=== PATIENT | male | born 1960 | race Caucasian/White ===

== ENCOUNTER 2023-06-04 07:55 | Day surgery (SDC) | payer MEDICARE, OTHER, MEDICAID | END 2023-06-04 10:10 | disposition home or self-care (01) | LOC: DS 07:55 | PROC: 0DBQ8ZZ Excision of Anus, Via Natural or Artificial Opening Endoscopic (ICD-10-PCS; principal; 2023-06-04) | PROC: 0DBN8ZZ Excision of Sigmoid Colon, Via Natural or Artificial Opening Endoscopic (ICD-10-PCS; 2023-06-04) | DX: D12.5 Benign neoplasm of sigmoid colon (principal); K62.1 Rectal polyp; K57.30 Diverticulosis of large intestine without perforation or abscess without bleeding; K64.8 Other hemorrhoids; M19.90 Unspecified osteoarthritis, unspecified site; F32.A Depression, unspecified; E78.00 Pure hypercholesterolemia, unspecified; Z80.0 Family history of malignant neoplasm of digestive organs; Z83.710 Family history of adenomatous and serrated polyps; Z88.0 Allergy status to penicillin ==

== ENCOUNTER 2024-03-25 05:50 | Day surgery (SDC) | payer MEDICARE, OTHER, MEDICAID ==
[2024-03-23 08:15] VITALS: BP 138/89
[~2024-03-25] VITALS: Ht 180.3 cm; Wt 90.9 kg
[~2024-03-25 05:50] MED LIST: BACLOFEN10 MG PO; BUTRANS1 EAC1 TD; CELEBREX200 MG PO; CYMBALTA60 MG PO; GLUCOSAMINE HC500 MG PO; LEXAPRO10 MG PO; LIDOCREAM5 GM TP; LIPITOR40 MG PO; MEN'S 50 PLUS1 EACH PO; MIDAZOLAM HCL 5 MG/5 ML VIAL IV PRN; NABUMETONE500 MG PO; OMEPRAZOLE20 M1 PO; ONDANSETRON ODT8 MG PO; PERCOCET 10-321 EACH PO; SUMATRIPTAN SU100 MG PO; fentaNYL citrate 100 MCG/2 ML VIAL IV PRN
[2024-03-25 05:59] VITALS: BP 145/88
[2024-03-25] MEDS ORDERED: LIDOCAINE HCL 1% 5 ML SDV INJ ONE (07:00)
[2024-03-25] MEDS ORDERED: LACTATED RINGER'S 1,000 ML IV SCH (07:00)
[2024-03-25] MEDS ORDERED: IBLOOD GLUCOSE TEST STRIP 1 EA TEST VI PRN (07:00)
[2024-03-25] MEDS ORDERED: LIDOCAINE HCL 2% 5 ML SDV ONE (07:07)
[2024-03-25] MEDS ORDERED: propofoL 200 MG/20 ML VIAL ONE (07:08)
[2024-03-25 08:04] VITALS: BP 127/91
--- NOTE | 2024-03-25 08:31 | OR ---
[facility] [address], [place] [address] Signed DATE OF OPERATION: 03/25/2024 SURGEON: Vielka Sweeney MD PREOPERATIVE DIAGNOSES: 1. Nausea, vomiting, anorexia, and weight loss, now improved. 2. Remote Lea fundoplication. POSTOPERATIVE DIAGNOSES: 1. Gastroesophageal junction at 41 cm. 2. Lower esophageal sphincter (41-44 cm). 3. Mild diffuse gastritis. PROCEDURE: Esophagogastroduodenoscopy with CLOtest and biopsies of the antrum. ESTIMATED BLOOD LOSS: None. INDICATIONS: Tree is a 63-year-old gentleman, who underwent laparoscopic Lea fundoplication over 10 years ago. He also has a lot of difficulty with his back. He has required to do some exercises for his back. He had come into the office, tell me that he was having nausea, vomiting, weight loss, and anorexia; however, today he said that is much better, has not resolved. He said if he lies down after he eats to do his exercises, he said he gets increased acid reflux. We had sent him for a barium swallow on 07/03/2023. Radiologist felt that there was a moderate-sized hiatal hernia. Most of Tree's family lives out of town, so he is just getting here now for his repeat upper endoscopy. His brother came in from [place] to help assist him. Unfortunately, his father has developed rather significant dementia. In the office, I gave San[employer] pamphlet on upper endoscopy. We had reviewed that together. He is very familiar with upper and lower endoscopy at this point in his life. There is risk including, but not limited to gas bloating, crampy abdominal pain, bleeding, perforation requiring surgery, and missed diagnosis. Tree always requires monitored anesthesia care given his overall past medical history as well as his use of marijuana and so forth. It has worked out very well for him in the past and it worked out well for him again today. He understands an adult person has to take him home afterwards. Namely, his brother, Mariusz, will be taking him home. He had expressed understanding and wished to proceed. DESCRIPTION OF PROCEDURE: Electronically Signed By: VIELKA SWEENEY MD 03/25/24 0831 PATIENT NAME: TREE MORAN OPERATIVE REPORT DATE OF : 56 REPORT #: [id number] PHYSICIAN: VIELKA SWEENEY MD PCP: CESAR VILLA MD REPORT IS CONFIDENTIAL AND NOT TO BE RELEASED WITHOUT AUTHORIZATION [facility] [address], [place] [address] Signed Tree was taken into our endoscopy suite and placed in the supine semi-recumbent position. He was given monitored anesthesia care per our nurse senior systems developer. The posterior oropharynx was anesthetized with Hurricaine spray. A bite block was utilized for the case. Adult gastroscope was introduced and advanced quite readily out into the third portion of the duodenum. The duodenum and pyloric channel were unremarkable. As always, he had a little diffuse redness in his stomach. We went ahead and took a biopsy of the antrum for CLOtest as well as pathologic review. Upon retroflexion of scope, he appears to have a small hiatal hernia. I really could not appreciate any postsurgical changes. We watched this for quite some time through multiple respiratory cycles. We brought the scope back up through the area of the GE junction, which was compliant without stricture. There was no gastric or esophageal varices. Once again, we really cannot appreciate any postsurgical changes. We see the GE junction at 41 cm, although little difficult to measure since Tree is edentulous. It appears that the lower esophageal sphincter area was about 44 cm back to about 41 cm. There was very little disruption to the Z-line. There was no Carter mucosa. There was no distal esophagitis. The middle and upper esophagus were unremarkable. After this, the gas was suctioned out, the gastroscope removed. Tree tolerated the procedure quite well. RECOMMENDATIONS: I will see Tree back in my office in the weeks ahead to review his biopsies. It is possible that he completely disrupted his Lea fundoplication, although that is a bit unusual. Based on his symptoms, he may or may not need to visit with his foregut surgeon. Vielka Sweeney MD ALB/MODL /[id number] cc: MD Estehr Ni MD Kevin R Andrews, MD Electronically Signed By: VIELKA SWEENEY MD 03/25/24 0831 PATIENT NAME: TREE MORAN OPERATIVE REPORT DATE OF : 56 REPORT #: [id number] PHYSICIAN: VIELKA SWEENEY MD PCP: CESAR VILLA MD REPORT IS CONFIDENTIAL AND NOT TO BE RELEASED WITHOUT AUTHORIZATION [address] [address] Signed Copies: VIELKA SWEENEY MD, CHRISTY MD ANDREWS, KEVIN R MD ~ Electronically Signed By: VIELKA SWEENEY MD 03/25/24 0831 PATIENT NAME: LUISATREEN OPERATIVE REPORT DATE OF : 56 REPORT #: [id number] PHYSICIAN: VIELKA SWEENEY MD PCP: CESAR VILLA MD REPORT IS CONFIDENTIAL AND NOT TO BE RELEASED WITHOUT AUTHORIZATION
== END 2024-03-25 08:15 | disposition home or self-care (01) ==
LOC: DS 05:50
PROVIDERS: ATTEND Colon & Rectal Surgery
PROC: 0DB68ZX Excision of Stomach, Via Natural or Artificial Opening Endoscopic, Diagnostic (ICD-10-PCS; principal; 2024-03-25 07:30)
DX: K29.50 Unspecified chronic gastritis without bleeding (principal); K21.9 Gastro-esophageal reflux disease without esophagitis; M19.90 Unspecified osteoarthritis, unspecified site; G89.29 Other chronic pain; K44.9 Diaphragmatic hernia without obstruction or gangrene; Z88.0 Allergy status to penicillin; Z88.8 Allergy status to other drugs, medicaments and biological substances; Z79.899 Other long term (current) drug therapy
CPT/HCPCS: 00731; 36415; 87077; 88305; J2001; J2704; J7121

== ENCOUNTER 2025-01-24 08:00 | Day surgery (SDC) | payer MEDICARE, OTHER ==
[2025-01-20 13:53] VITALS: BP 126/95
[~2025-01-24] VITALS: Ht 180.3 cm; Wt 95.0 kg
[~2025-01-24 08:00] MED LIST changes: +CEFAZOLIN SODIUM 2 GM/20 ML SYR IV SCH; +IBLOOD GLUCOSE TEST STRIP 1 EA TEST VI PRN; +LACTATED RINGER'S 1,000 ML IV SCH; +LIDOCAINE HCL 1% 5 ML SDV INJ ONE; +LIDOCAINE35.44 GM TOP; -MIDAZOLAM HCL 5 MG/5 ML VIAL IV PRN; +PHENAZOPYRIDIN200 MG PO; +TAMSULOSIN HCL0.4 MG PO; -fentaNYL citrate 100 MCG/2 ML VIAL IV PRN; +mitoMYcin 40 MG/20 ML VIAL BLADIN SCH
[2025-01-24 08:17] VITALS: BP 135/87
[2025-01-24] MEDS ORDERED: ondansetron HCL 4 MG/2 ML VIAL ONE (09:58)
[2025-01-24] MEDS ORDERED: propofoL 200 MG/20 ML VIAL ONE (09:58)
[2025-01-24] MEDS ORDERED: DEXAMETHASONE SOD PHOS 4 MG/ML VIAL ONE (09:58)
[2025-01-24] MEDS ORDERED: ROCURONIUM BROMIDE 50 MG/5 ML SYR ONE ×3 (09:58→12:39)
[2025-01-24] MEDS ORDERED: dexmedeTOMIDine HCl 200 MCG/2 ML VIAL ONE (09:58)
[2025-01-24] MEDS ORDERED: LIDOCAINE HCL 2% 5 ML SDV ONE (09:58)
[2025-01-24] MEDS ORDERED: LIDOCAINE HCL 2% 20 MG/ML VIAL INJ ONE (09:58)
[2025-01-24] MEDS ORDERED: fentaNYL citrate 100 MCG/2 ML VIAL ONE ×2 (09:58→10:53)
[2025-01-24] MEDS ORDERED: SUGAMMADEX SODIUM 200 MG/2 ML ML ONE (09:59)
[2025-01-24] MEDS ORDERED: KETAMINE in NS 50 MG/5 ML SYR ONE (09:59)
[2025-01-24] MEDS ORDERED: HYDROmorphone HCL 1 MG/ML SYR IV PRN ×2 (10:15→11:15)
[2025-01-24] MEDS ORDERED: MORPHINE SULFATE 15 MG TABCR PO PRN (10:15)
[2025-01-24] MEDS ORDERED: ondansetron HCL 4 MG/2 ML VIAL IV PRN ×2 (10:15→11:15)
[2025-01-24] MEDS ORDERED: OXYCODONE/APAP 5/325 TAB PO PRN (10:15)
[2025-01-24] MEDS ORDERED: HYOSCYAMINE SULFATE 0.375 MG TAB.ER.12H PO PRN (10:15)
[2025-01-24] MEDS ORDERED: NALOXONE HCL 0.4 MG SYR IV PRN (11:15)
[2025-01-24] MEDS ORDERED: droPERidol 5 MG/2 ML VIAL IV PRN (11:15)
[2025-01-24] MEDS ORDERED: fentaNYL citrate 50 MCG/ML SDV IV PRN (11:15)
[2025-01-24] MEDS ORDERED: IBLOOD GLUCOSE TEST STRIP 1 EA TEST VI PRN (11:15)
[2025-01-24] MEDS ORDERED: PROCHLORPERAZINE EDISYLATE 10 MG/2 ML VIAL IV PRN (11:15)
[2025-01-24] MEDS ORDERED: LACTATED RINGER'S 1,000 ML IV ONE (11:32)
[2025-01-24] MEDS ORDERED: hydrALAZINE HCL 20 MG/ML VIAL ONE (11:41)
[2025-01-24] MEDS ORDERED: FLUORESCEIN SODIUM 500 MG/5 ML ML ONE (11:47)
[2025-01-24] MEDS ORDERED: HYDROmorphone HCL 2 MG/ML VIAL ONE (12:30)
[2025-01-24] MEDS ORDERED: TRANEXAMIC ACID 1,000 MG/10 ML AMP ONE (12:41)
--- NOTE | 2025-01-24 13:24 | NUR ---
01/24/25 1324 Shabnam Angulo 1259 PT ARRIVED IN PACU NON RESPONSIVE TO NOXIOUS STIMULI WITH OPA IN PLACE LAYING SUPINE. CHIN LIFT HELD BY RN. 1305 PT REACTIVE. OPA REMOVED. REPOSITIONED PT TO R SIDE. 1320 REPOSITIONED PT TO L SIDE. NO C/O'S.
[2025-01-24 13:52] VITALS: BP 148/85
[2025-01-24] MEDS ORDERED: SEVOFLURANE 250 ML BTL INH ONE (14:10)
--- NOTE | 2025-01-24 14:22 | NUR ---
PT ARRIVED BACK TO ON RA, IN PRONE POSITION WITH MCDONOUGH CATHETER NOTED TO BE DRAINING TO GRAVITY, SANGUINEOUS URINE WITH VISIBLE CLOTS. VS TAKEN. REPORT RECEIVED FROM PEDIATRIC NP THAT PT WAS UNABLE TO TOLERATE PRONE POSITION WITH MITOMYCIN IN PLACE FOR MORE THAN 5 MINS AND THAT BLADDER WAS DRAINED WITH DR. DEMETRIUS HURTADO. PT REPORTS PAIN IN BLADDER AND RATES AT 6/10. PT DENIES NAUSEA WHEN ASKED. IV SITE ASSESSED AND NOTED TO BE SL'D UPON RETURN TO . SMALL AMT OF SANGUINOUS DRAINAGE NOTED FROM URETHRA AROUND CATHETER. PT ASSISTED IN TURNING ONTO BACK TO COMPLETE DRAINING OF BLADDER AND CHANGE CATHETER DRAINAGE BAG TO DISPOSE OF MITOMYCIN PER POLICY. 1400-PTS MCDONOUGH BAG REPLACED. APPROX 200ML OF MITOMYCIN MIXED WITH SANGUINEOUS URINE NOTED IN MCDONOUGH DRAINAGE BAG. DISPOSED OF PER FACILITY POLICY. STAT LOCK PLACED ON R INNER THIGH AREA TO SECURE CATH BAG AND PREVENT PULLING. PT NOTED WITH LARGE AMT OF CLOTS IN DRAINAGE TUBING. MCDONOUGH DRAINAGE TO GRAVITY AT THIS TIME. 1409-PT GIVEN PO PAIN MEDS PER EMAR WELL ICE WATER AND PUDDING. PT EATING AND DRINKING W/O ISSUES REPORTED OR NOTED. 1415-PT REPORTING BLADDER SPASMS. PO HYCOSAMINE GIVEN PER ORDERS FOR RELIEF. PT DROWSY AND DOZING ON AND OFF. BED IN LOW POSITION. CALL LIGHT WITHIN PT REACH. BILAT RAILS IN PLACE FOR SAFETY. ALL QUESTIONS ANSWERED.
[2025-01-24 14:52] VITALS: BP 141/78
--- NOTE | 2025-01-24 14:52 | NUR ---
INTO PTS ROOM FOR ROUTINE REASSESSMENT. VS TAKEN. IV SITE ASSESSED. CATHETER NOTED TO BE DRAINAGE SANGUINEOUS URINE TO GRAVITY. SMALL CLOTS VISUALIZED IN DRAINAGE BAG. PT DENIES NAUSEA WHEN ASKED. PT REPORTS IMPROVEMENT IN BOTH PAIN AND BLADDER SPASMS. PT RATES PAIN AT 3/10 AND REPORTS THIS TO BE A TOLERABLE LEVEL OF PAIN FOR HIM. PT EATING AND DRINKING W/O ISSUES. PT REMAINS DROWSY AND NOTED TO EASILY FALL ASLEEP. PT WITH AUDIBLY LOUD SNORRING. PT DOES EASILY AROUSE WITH TACTILE STIMULI. BED IN LOW POSITION. WHEELS LOCKED. BILAT RAILS IN PLACE. CALL LIGHT WITHIN PT REACH. ALL QUESTIONS ANSWERED. ICE WATER REFILLED.
[2025-01-24 15:55] VITALS: BP 139/95
[2025-01-24] MEDS ORDERED: OXYBUTYNIN CHLOR5 MG PO (16:08)
[2025-01-24] MEDS ORDERED: OXYCODONE HCL5 MG PO (16:09)
[2025-01-24] MEDS ORDERED: LEVOFLOXACIN500 MG PO (16:10)
--- NOTE | 2025-01-24 16:30 | NUR ---
1552-INTO PTS ROOM FOR ROUTINE REASSESSMENT. VS TAKEN. IV SITE ASSESSED. PT REPORTS FURTHER IMPROVMENT IN PAIN AND BLADDER SPASMS. PT REPORTS PAIN NOW 1/10 AND DESRIBES SLIGHTLY IRRITATING. PT REPORTS THIS LEVEL OF PAIN TO BE TOLERABLE AND DECLINES ANY FURTHER PAIN MANAGEMENTS NEEDS AT THIS TIME. PT REPORTS SPASMS HAVE STOPPED CURRENTLY. ICE WATER REFILLED. PT NOW MORE AWAKE AND AAOX3. PT ANSWERS QUESTIONS APPROPRAITELY. CATHETER CONTINUES TO DRAIN TO GRAVITY AND IS NOW YELLOW IN COLOR WITH RARE SMALL CLOTS SEEN. PT EDUCATED ON CATH CARE AND MAINTENENCE. PT SHOWN HOW TO DRAIN CATHETER BAG. APPROX 650 ML OF URINE EMPTIED. PT VERBALIZED UNDERSTANDIING. ASSISTED PT IN DRESSING FOR DC. 1615-PT PROVIDED WITH WRITTEN AND VERBAL DISCHARGE INSTRUCTION. PT ALSO GIVEN HANDOUT OF HOME CARE INSTRUCTIONS FOR HANDLING OF URINE AFTER PROCEDURE WITH MITOMYCIN. ALL QUESTIONS ANSWERED AND PT VERBALIZED UNDERSTANDING. RX'S GIVEN TO PT. 1630-IV REMOVED. TIP APPEARS INTACT. PRESSURE DRSG APPLIED WITH GAUZE AND COBAN. ICE WATER REFIILLED. PTS BROTHER CALLED FOR RIDE HOME.
--- NOTE | 2025-01-24 16:40 | NUR ---
PT DISCHARGED FROM DS VIA WC TO PASSENGER SIDE OF [employer] VEHICLE. ALL PERSONAL BELONGINGS TAKEN WITH PT.
--- NOTE | 2025-01-26 16:35 | PATH ---
[facility] [address] [facility] [place], [place] [address] Signed SPECIMEN(S): A BLADDER TUMOR SPECIMEN SOURCE: A. BLADDER TUMOR CLINICAL HISTORY: Bladder mass, gross hematuria, acute cystitis with hematuria FINAL PATHOLOGIC DIAGNOSIS: Bladder tumor, TUR: - Invasive high-grade papillary urothelial carcinoma. - Tumor configuration: Papillary. - Tumor grade: High-grade. - Stromal invasion: Present. - Detrusor muscle: Present with extensive tumor invasion. COMMENT: Diagnostic notification to the office of Dr. Aguirre is initiated by Dr. Shore and will be reported separately. As part of [facility]' Quality Improvement Program, this case was reviewed by another member of our pathology staff. JVR:SHARDA:[facility] MICROSCOPIC EXAMINATION: Histologic sections of all submitted blocks are examined by light microscopy. These findings, together with the gross examination, support the pathologic diagnosis. GROSS DESCRIPTION: The specimen, labeled and designated "Forth, bladder tumor," is received in formalin and consists of multiple fragments of red-brown soft and rubbery tissue (12.0 x 5.6 x 0.6 cm in aggregate). The specimen is submitted entirely in cassette (A1-A11). VB (under the direct supervision of a pathologist) The Gross Description was prepared using a voice recognition system. The report was reviewed for accuracy; however, sound-alike word errors, addition and/or deletions may occur. If there is any question about this report, please contact Client Services. PERFORMING LABORATORY: Technical component was performed by [facility], Sylvia Tate, PATIENT NAME: XOCHITL MORAN PATHOLOGY DATE OF : 56 REPORT #: [id number] PHYSICIAN: HO JUNG PCP: MIGUE OROSCO DO REPORT IS CONFIDENTIAL AND NOT TO BE RELEASED WITHOUT AUTHORIZATION [facility] [address] [facility] [place], [place] [address] [place] [address] (CLIA# [id number]). Professional interpretation was performed by [facility], [address] [place] [id number] (CLIA#: [id number]). Diagnostician: Roshan Shore MD Pathologist Electronically Signed 01/26/2025 Copies: ~ PATIENT NAME: XOCHITL MORAN PATHOLOGY DATE OF : 56 REPORT #: [id number] PHYSICIAN: HO JUNG PCP: MIGUE OROSCO DO REPORT IS CONFIDENTIAL AND NOT TO BE RELEASED WITHOUT AUTHORIZATION
== END 2025-01-24 16:40 | disposition home or self-care (01) ==
LOC: DS 08:00 → OPS 08:00 → DS 09:55 → OPS 09:55
PROVIDERS: ATTEND Urology
PROC: 3E0K805 Introduction of Other Antineoplastic into Genitourinary Tract, Via Natural or Artificial Opening Endoscopic (ICD-10-PCS; 2025-01-24)
PROC: 0TBB8ZZ Excision of Bladder, Via Natural or Artificial Opening Endoscopic (ICD-10-PCS; principal; 2025-01-24 09:55)
DX: C67.2 Malignant neoplasm of lateral wall of bladder (principal); C67.4 Malignant neoplasm of posterior wall of bladder; N32.3 Diverticulum of bladder; N30.01 Acute cystitis with hematuria; K21.9 Gastro-esophageal reflux disease without esophagitis; E78.00 Pure hypercholesterolemia, unspecified; Z87.891 Personal history of nicotine dependence; Z79.1 Long term (current) use of non-steroidal anti-inflammatories (NSAID); Z79.899 Other long term (current) drug therapy; Z90.49 Acquired absence of other specified parts of digestive tract; Z88.0 Allergy status to penicillin; Z88.8 Allergy status to other drugs, medicaments and biological substances; N32.89 Other specified disorders of bladder
CPT/HCPCS: 00910; 88307; C1713; J0360; J0690; J1100; J1171; J2003; J2405; J2704; J3010; J3490; J7121; J9280

== ENCOUNTER 2025-03-16 15:34 | Emergency (ER) | payer MEDICARE, OTHER ==
[~2025-03-16] VITALS: Ht 180.3 cm; Wt 71.0 kg
[~2025-03-16 15:34] MED LIST changes: -CEFAZOLIN SODIUM 2 GM/20 ML SYR IV SCH; -IBLOOD GLUCOSE TEST STRIP 1 EA TEST VI PRN; -LACTATED RINGER'S 1,000 ML IV SCH; +LEVOFLOXACIN500 MG PO; -LIDOCAINE HCL 1% 5 ML SDV INJ ONE; -OMEPRAZOLE20 M1 PO; +OMEPRAZOLE40 MG PO; +OXYBUTYNIN CHLOR5 MG PO; +OXYCODONE HCL5 MG PO; -mitoMYcin 40 MG/20 ML VIAL BLADIN SCH
[2025-03-16] MEDS ORDERED: OXYBUTYNIN CHLOR5 M1 PO (15:50)
[2025-03-16 16:01] LABS: BLOOD/HGB, URINE LARGE (Negative); KETONE, URINE TRACE (Negative); LEUK ESTERASE, URINE MODERATE (negative); NITRITE, URINE POSITIVE (negative)
[2025-03-16 16:09] LABS: BACTERIA, URINE 2+ /hpf (negative); CASTS, URINE NONE SEEN \\lpf; CRYSTALS, URINE NONE SEEN (0-1+); EPITHELIAL CELLS, URINE SQUAMOUS 1+ /lpf (0-1+); REFLEX CULTURE, URINE Yes (No)
[2025-03-16] MEDS ORDERED: SODIUM CHLORIDE 0.9% 500 ML IV PRN (16:45)
[2025-03-16] MEDS ORDERED: KETOROLAC TROMETHAMINE 15 MG/ML VIAL IV ONE (16:45)
[2025-03-16 17:03] LABS: BASOPHILS 0.5 % (0.2-1.2); EOSINOPHILS 0.5 % (0.8-7.0); LYMPHOCYTES 19.7 % (21.8-53.1); MCH 22.4 PG (25.7-32.2); MCHC 31.0 g/dL (32.3-36.5); MCV 72.1 fL (79.0-92.2); MONOCYTES 13.5 % (5.3-12.2); NEUTROPHILS 65.0 % (34.0-67.9); RBC 5.59 M/uL (4.63-6.08)
[2025-03-16 17:18] LABS: ALT (SGPT) 26.0 U/L (14-59); AST (SGOT) 16.0 U/L (15-37); GLOMERULAR FILTRATION RATE,EST 46.0 mL/min (>60); PROTEIN, TOTAL 8.0 g/dL (6.4-8.2); UREA NITROGEN 19.0 mg/dL (7-18)
[2025-03-16] MEDS ORDERED: SODIUM CHLORIDE 0.9% 1,000 ML IV PRN (17:45)
[2025-03-16] MEDS ORDERED: HYDROmorphone HCL 1 MG/ML SYR IV PRN (17:45)
[2025-03-16] MEDS ORDERED: CEFDINIR300 MG PO (19:03)
[2025-03-16 19:13] VITALS: BP 151/98
== END 2025-03-16 19:15 | disposition home or self-care (01) ==
LOC: ED 15:34
PROVIDERS: Emergency Medicine
DX: N39.0 Urinary tract infection, site not specified (principal); C78.00 Secondary malignant neoplasm of unspecified lung; C67.9 Malignant neoplasm of bladder, unspecified; E78.00 Pure hypercholesterolemia, unspecified; M19.90 Unspecified osteoarthritis, unspecified site; K21.9 Gastro-esophageal reflux disease without esophagitis; Z79.899 Other long term (current) drug therapy; Z88.0 Allergy status to penicillin; Z88.8 Allergy status to other drugs, medicaments and biological substances; Z87.891 Personal history of nicotine dependence
CPT/HCPCS: 36415; 51798; 74176; 80053; 81001; 83605; 85025; 87088; 87103; 96365; 96375; 99284-25; J0696; J1171; J1885; J7030; J7040

== ENCOUNTER 2025-04-09 20:05 | Emergency (ER) | payer MEDICARE, OTHER ==
[~2025-04-09] VITALS: Ht 365.8 cm; Wt 76.5 kg
[~2025-04-09 20:05] MED LIST changes: +CEFDINIR300 MG PO; -CYMBALTA60 MG PO; +DULOXETINE HCL60 MG PO; +OXYBUTYNIN CHLOR5 M1 PO
--- OUTSIDE RECORDS SUMMARY | 2025-04-09 20:12 | XMS ---
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 Gary has no Care Guidelines for this patient. C[facility] (12 MO.) [facility] NOTE: Visits indicate total known visits. ED/C VISIT TRACKING (12 MO.) 04/09/2025 20:[address] [facility] [place] TYPE: Emergency COMPLAINT: - WEAKNESS 03/16/2025 15:[address] [facility] [place] TYPE: Emergency COMPLAINT: - BLADDER ISSUE DIAGNOSES: - Allergy status to other drugs, medicaments and biological substances - Allergy status to penicillin - Gastro-esophageal reflux disease without esophagitis - Malignant neoplasm of bladder, unspecified - Other snf (current) drug therapy - Personal history of nicotine dependence - Pure hypercholesterolemia, unspecified - Retention of urine, unspecified - Secondary malignant neoplasm of unspecified lung - Unspecified osteoarthritis, unspecified site - Urinary tract infection, site not specified INPATIENT VISIT TRACKING (12 MO.) No inpatient visits to display in this time frame [email or web address]
[2025-04-09] MEDS ORDERED: PROCHLORPERAZINE5 MG PO (20:29)
[2025-04-09] MEDS ORDERED: LACTATED RINGER'S 1,000 ML IV ONE ×2 (20:45→22:15)
[2025-04-09] MEDS ORDERED: FAMOTIDINE 20 MG/ 2 ML VIAL IV ONE (20:45)
[2025-04-09 21:10] LABS: ALT (SGPT) 24.0 U/L (14-59); AST (SGOT) 19.0 U/L (15-37); GLOMERULAR FILTRATION RATE,EST 65.0 mL/min (>60); PROTEIN, TOTAL 7.3 g/dL (6.4-8.2); UREA NITROGEN 20.0 mg/dL (7-18)
[2025-04-09] MEDS ORDERED: SUCRALFATE 1 GM TAB PO ONE (21:15)
[2025-04-09] MEDS ORDERED: LIDOCAINE & ANTACID 35 ML BTL PO ONE (21:15)
[2025-04-09 21:36] LABS: BASOPHILS 0 % (0.2-1.2); EOSINOPHILS 0.2 % (0.8-7.0); LYMPHOCYTES 10.8 % (21.8-53.1); MCH 23.2 PG (25.7-32.2); MCHC 32.1 g/dL (32.3-36.5); MCV 72.3 fL (79.0-92.2); MONOCYTES 5.7 % (5.3-12.2); NEUTROPHILS 82.6 % (34.0-67.9); RBC 4.44 M/uL (4.63-6.08)
[2025-04-09 22:30] LABS: BLOOD/HGB, URINE MODERATE (Negative); KETONE, URINE >=80 (Negative); LEUK ESTERASE, URINE NEGATIVE (negative); NITRITE, URINE NEGATIVE (negative)
[2025-04-09 22:52] LABS: BACTERIA, URINE 1+ /hpf (negative); CASTS, URINE NONE SEEN \\lpf; CRYSTALS, URINE NONE SEEN (0-1+); EPITHELIAL CELLS, URINE SQUAMOUS 1+ /lpf (0-1+); REFLEX CULTURE, URINE No (No)
[2025-04-09] MEDS ORDERED: ACETAMINOPHEN 325 MG TAB PO ONE (23:45)
[2025-04-09] MEDS ORDERED: ONDANSETRON ODT4 MG PO (23:59)
[2025-04-09] MEDS ORDERED: CARAFATE1 GM PO (23:59)
[2025-04-10 00:49] VITALS: BP 160/96
[2025-04-10] MEDS ORDERED: ONDANSETRON 4 MG HOME.PACK SL ONE ×2 (00:57→23:45)
[2025-04-12] MEDS ORDERED: CARAFATE1 GM PO (17:24)
[2025-04-14] MEDS ORDERED: FAMOTIDINE20 MG PO (16:54)
[2025-04-14] MEDS ORDERED: CELECOXIB200 MG PO (16:55)
[2025-04-14] MEDS ORDERED: ONDANSETRON ODT8 MG PO (16:58)
[2025-04-14] MEDS ORDERED: DEXAMETHASONE4 MG PO (17:00)
[2025-04-14] MEDS ORDERED: TRAMADOL HCL50 MG PO (17:01)
[2025-04-14] MEDS ORDERED: OXYBUTYNIN CHLOR5 M1 PO (17:04)
== END 2025-04-10 00:51 | disposition home or self-care (01) ==
LOC: ED 20:05
PROVIDERS: Internal Medicine
DX: R11.2 Nausea with vomiting, unspecified (principal); T45.1X5A Adverse effect of antineoplastic and immunosuppressive drugs, initial encounter; K21.9 Gastro-esophageal reflux disease without esophagitis; Z87.891 Personal history of nicotine dependence; Z88.0 Allergy status to penicillin; Z88.8 Allergy status to other drugs, medicaments and biological substances; Z88.6 Allergy status to analgesic agent; Z79.899 Other long term (current) drug therapy
CPT/HCPCS: 36415; 80053; 81001; 83690; 83735; 84484; 85025; 96361; 96374; 96375; 99284-25; A9270; J2405; J7121

== ENCOUNTER 2025-04-11 13:01 | Emergency (ER) | payer MEDICARE, OTHER ==
[~2025-04-11] VITALS: Ht 365.8 cm; Wt 73.5 kg
[~2025-04-11 13:01] MED LIST changes: +CARAFATE1 GM PO; +ONDANSETRON ODT4 MG PO; +PROCHLORPERAZINE5 MG PO
--- OUTSIDE RECORDS SUMMARY | 2025-04-11 13:09 | XMS ---
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 Gary has no Care Guidelines for this patient. Candy VISIT COUNT (12 MO.) 3 [facility]. TOTAL 3 NOTE: Visits indicate total known visits. ED/C VISIT TRACKING (12 MO.) 04/11/2025 13:[address] [facility] [place] TYPE: Emergency COMPLAINT: - WEAKNESS 04/09/2025 20:05 [facility] [place] TYPE: Emergency COMPLAINT: - WEAKNESS 03/16/2025 15:34 [facility] [place] TYPE: Emergency COMPLAINT: - BLADDER ISSUE DIAGNOSES: - Allergy status to other drugs, medicaments and biological substances - Allergy status to penicillin - Gastro-esophageal reflux disease without esophagitis - Malignant neoplasm of bladder, unspecified - Other mcfp (current) drug therapy - Personal history of nicotine dependence - Pure hypercholesterolemia, unspecified - Retention of urine, unspecified - Secondary malignant neoplasm of unspecified lung - Unspecified osteoarthritis, unspecified site - Urinary tract infection, site not specified INPATIENT VISIT TRACKING (12 MO.) No inpatient visits to display in this time frame [email or web address]
[2025-04-11] MEDS ORDERED: HYDROmorphone HCL 1 MG/ML SYR IV PRN (14:00)
[2025-04-11] MEDS ORDERED: SODIUM CHLORIDE 0.9% 1,000 ML IV ONE (14:00)
[2025-04-11 14:22] LABS: BASOPHILS 0.5 % (0.2-1.2); EOSINOPHILS 0.7 % (0.8-7.0); LYMPHOCYTES 17.6 % (21.8-53.1); MCH 23.3 PG (25.7-32.2); MCHC 32.1 g/dL (32.3-36.5); MCV 72.6 fL (79.0-92.2); MONOCYTES 2.4 % (5.3-12.2); NEUTROPHILS 78.6 % (34.0-67.9); RBC 4.63 M/uL (4.63-6.08)
[2025-04-11 14:38] LABS: ALT (SGPT) 27.0 U/L (14-59); AST (SGOT) 16.0 U/L (15-37); GLOMERULAR FILTRATION RATE,EST 73.0 mL/min (>60); PROTEIN, TOTAL 6.9 g/dL (6.4-8.2); UREA NITROGEN 18.0 mg/dL (7-18)
[2025-04-11 15:55] LABS: BLOOD/HGB, URINE MODERATE (Negative); KETONE, URINE SMALL (Negative); LEUK ESTERASE, URINE NEGATIVE (negative); NITRITE, URINE NEGATIVE (negative)
[2025-04-11 16:10] LABS: BACTERIA, URINE NONE SEEN /hpf (negative); CASTS, URINE NONE SEEN \\lpf; CRYSTALS, URINE NONE SEEN (0-1+); EPITHELIAL CELLS, URINE SQUAMOUS 2+ /lpf (0-1+); REFLEX CULTURE, URINE No (No)
[2025-04-11 16:55] VITALS: BP 163/106
[2025-04-12] MEDS ORDERED: CARAFATE1 GM PO (17:24)
[2025-04-14] MEDS ORDERED: FAMOTIDINE20 MG PO (16:54)
[2025-04-14] MEDS ORDERED: CELECOXIB200 MG PO (16:55)
[2025-04-14] MEDS ORDERED: ONDANSETRON ODT8 MG PO (16:58)
[2025-04-14] MEDS ORDERED: DEXAMETHASONE4 MG PO (17:00)
[2025-04-14] MEDS ORDERED: TRAMADOL HCL50 MG PO (17:01)
[2025-04-14] MEDS ORDERED: OXYBUTYNIN CHLOR5 M1 PO (17:04)
== END 2025-04-11 17:03 | disposition home or self-care (01) ==
LOC: ED 13:01
PROVIDERS: Emergency Medicine
DX: E86.0 Dehydration (principal); N13.30 Unspecified hydronephrosis; K44.9 Diaphragmatic hernia without obstruction or gangrene; C67.9 Malignant neoplasm of bladder, unspecified; Z87.891 Personal history of nicotine dependence; Z88.0 Allergy status to penicillin; Z88.8 Allergy status to other drugs, medicaments and biological substances; Z79.899 Other long term (current) drug therapy
CPT/HCPCS: 36415; 74177; 80053; 81001; 83690; 85025; 96361; 96374; 96375; 99284-25; J1171; J2405; J7030; Q9967

== ENCOUNTER 2025-04-18 07:38 | Day surgery (SDC) | payer MEDICARE, OTHER ==
[~2025-04-18] VITALS: Ht 180.3 cm; Wt 73.0 kg
[~2025-04-18 07:38] MED LIST changes: +CEFAZOLIN SODIUM 2 GM in SODIUM CHLORIDE 0.9% 100 ML IV SCH; +CELECOXIB200 MG PO; +DEXAMETHASONE4 MG PO; +FAMOTIDINE20 MG PO; +IBLOOD GLUCOSE TEST STRIP 1 EA TEST VI PRN; +LACTATED RINGER'S 1,000 ML IV SCH; +LIDOCAINE HCL 1% 5 ML SDV INJ ONE; +TRAMADOL HCL50 MG PO
[2025-04-18 07:54] VITALS: BP 158/105
--- NOTE | 2025-04-18 08:10 | NUR ---
HAS PICC JAYASHREE ON ADMISSION. SAGE WITH PT AT BS.
--- NOTE | 2025-04-18 09:07 | NUR ---
IN TO TALK WITH PT.
[2025-04-18] MEDS ORDERED: fentaNYL citrate 100 MCG/2 ML VIAL ONE (09:33)
[2025-04-18] MEDS ORDERED: DEXAMETHASONE SOD PHOS 4 MG/ML VIAL ONE (09:33)
[2025-04-18] MEDS ORDERED: ACETAMINOPHEN 1,000 MG/100 ML VIAL ONE (09:33)
[2025-04-18] MEDS ORDERED: LIDOCAINE HCL 2% 5 ML SDV ONE (09:33)
[2025-04-18] MEDS ORDERED: KETOROLAC TROMETHAMINE 30 MG/ML VIAL ONE (09:34)
[2025-04-18] MEDS ORDERED: HYOSCYAMINE SULFATE 0.375 MG TAB.ER.12H PO PRN (09:45)
[2025-04-18] MEDS ORDERED: MORPHINE SULFATE 15 MG TABCR PO PRN (09:45)
[2025-04-18] MEDS ORDERED: OXYCODONE/APAP 5/325 TAB PO PRN (09:45)
[2025-04-18] MEDS ORDERED: HYDROmorphone HCL 1 MG/ML SYR IV PRN ×2 (09:45→10:00)
[2025-04-18] MEDS ORDERED: PHENAZOPYRIDINE HCL 100 MG TAB PO ONE (09:45)
[2025-04-18] MEDS ORDERED: IBLOOD GLUCOSE TEST STRIP 1 EA TEST VI PRN (10:00)
[2025-04-18] MEDS ORDERED: fentaNYL citrate 50 MCG/ML SDV IV PRN (10:00)
[2025-04-18] MEDS ORDERED: NALOXONE HCL 0.4 MG SYR IV PRN (10:00)
[2025-04-18] MEDS ORDERED: PROCHLORPERAZINE EDISYLATE 10 MG/2 ML VIAL IV PRN (10:00)
[2025-04-18] MEDS ORDERED: FLUORESCEIN SODIUM 500 MG/5 ML ML ONE (10:06)
--- NOTE | 2025-04-18 10:51 | NUR ---
04/18/25 1051 Elayne Salas PATIENT ARRIVES IN PACU, UNRESPONSIVE AND JAW THRUST IS NECESSARY FOR ADEQUATE EXCHANGE.
[2025-04-18 11:14] VITALS: BP 162/100
--- NOTE | 2025-04-18 11:17 | NUR ---
SAGE HAS NOT RETURNED YET. CALL LIGHT GIVEN. WATER AND JELLO GIVEN.
[2025-04-18 12:08] VITALS: BP 153/100
--- NOTE | 2025-04-18 12:11 | NUR ---
STATES WATS TO GO HOME. HAS TAKEN WATER AND JELLO. DECLINES PAIN MEDICINE.
[2025-04-18] MEDS ORDERED: SEVOFLURANE 250 ML BTL INH ONE (13:06)
--- NOTE | 2025-04-18 13:56 | NUR ---
DC INSTRUCTIONS EXPLAINED AND COPIES GIVEN. REVIEWED COMPUTER PRINT OUT ONES ALSO PT STATES NO QUESTIONS. SAGE WAS HERE TO TAKE PT HOME.
== END 2025-04-18 12:42 | disposition home or self-care (01) ==
LOC: DS 07:38 → OPS 07:38 → DS 09:30 → OPS 09:30
PROVIDERS: ATTEND Urology
PROC: 0T7D7ZZ Dilation of Urethra, Via Natural or Artificial Opening (ICD-10-PCS; principal; 2025-04-18 09:30)
DX: C67.4 Malignant neoplasm of posterior wall of bladder (principal); N13.39 Other hydronephrosis; N35.911 Unspecified urethral stricture, male, meatal; N32.89 Other specified disorders of bladder; E78.00 Pure hypercholesterolemia, unspecified; I10 Essential (primary) hypertension; K21.9 Gastro-esophageal reflux disease without esophagitis; Z79.899 Other long term (current) drug therapy; Z88.0 Allergy status to penicillin; Z88.5 Allergy status to narcotic agent; Z88.8 Allergy status to other drugs, medicaments and biological substances; Z90.49 Acquired absence of other specified parts of digestive tract
CPT/HCPCS: 00910; C1769; C2617; J0131; J0688; J1100; J1885; J2003; J2405; J2704; J3010; J7121

== ENCOUNTER 2025-07-06 18:05 | Emergency (ER) | payer MEDICARE, OTHER ==
[~2025-07-06] VITALS: Ht 182.9 cm; Wt 68.0 kg
[~2025-07-06 18:05] MED LIST changes: -CEFAZOLIN SODIUM 2 GM in SODIUM CHLORIDE 0.9% 100 ML IV SCH; -IBLOOD GLUCOSE TEST STRIP 1 EA TEST VI PRN; -LACTATED RINGER'S 1,000 ML IV SCH; -LIDOCAINE HCL 1% 5 ML SDV INJ ONE
[2025-07-06] MEDS ORDERED: SODIUM CHLORIDE 0.9% 1,000 ML IV SCH ×2 (19:15→22:15)
[2025-07-06] MEDS ORDERED: HYDROmorphone HCL 1 MG/ML SYR IV PRN (19:15)
[2025-07-06 19:53] LABS: BLOOD/HGB, URINE LARGE (Negative); KETONE, URINE NEGATIVE (Negative); LEUK ESTERASE, URINE SMALL (negative); NITRITE, URINE POSITIVE (negative)
[2025-07-06 20:05] LABS: BACTERIA, URINE RARE /hpf (negative); CASTS, URINE NONE SEEN \\lpf; CRYSTALS, URINE NONE SEEN (0-1+); EPITHELIAL CELLS, URINE SQUAMOUS 1+ /lpf (0-1+); REFLEX CULTURE, URINE Yes (No)
[2025-07-06 20:33] LABS: BASOPHILS 0.1 % (0.2-1.2); EOSINOPHILS 0.1 % (0.8-7.0); LYMPHOCYTES 6.0 % (21.8-53.1); MCH 26.7 PG (25.7-32.2); MCHC 31.8 g/dL (32.3-36.5); MCV 84.0 fL (79.0-92.2); MONOCYTES 6.3 % (5.3-12.2); NEUTROPHILS 87.1 % (34.0-67.9); RBC 3.18 M/uL (4.63-6.08)
[2025-07-06 20:55] LABS: ALT (SGPT) 14.0 U/L (14-59); AST (SGOT) 14.0 U/L (15-37); GLOMERULAR FILTRATION RATE,EST 77.0 mL/min (>60); PROTEIN, TOTAL 5.8 g/dL (6.4-8.2); UREA NITROGEN 10.0 mg/dL (7-18)
--- OUTSIDE RECORDS SUMMARY | 2025-07-06 23:05 | XMS | Continuity of Care Document ---
Demographics + + + | Address | [address] [place] [address] RD | | | [place] [address] | + + + | Preferred Language | Unknown | + + + | Marital Status | | + + + | Caodaism Affiliation | Unknown | + + + | Race | White | + + + | Ethnic Group | Not or | + + + Author + + + | Author | [facility] | + + + | Organization | [facility] | + + + | Address | [address] | | | [place] [address] | + + + | Phone | | + + + Care Team Providers + + + + | Care Continuing Education Director Name | Role | Phone | + + + + Unavailable | Unavailable | + + + + Unavailable | Unavailable | + + + + Allergies and Intolerances + + + + + + | date | description | facility | reaction | severity | + + + + + + | 2025-04-09 | Pregabalin | [facility] | Delirium | Moderate | | 00:00 | | [facility] | | | + + + + + + | 2025-04-09 | pregabalin | [facility] - | (no reaction) | (no severity) | | 00:00 | | [facility] | | | + + + + + + | 2025-04-09 | Penicillin g | [facility] | Itching | Moderate | | 00:00 | | [facility] | | | + + + + + + | 2025-04-09 | Meperidine | [facility] | Itching | Moderate | | 00:00 | | [facility] | | | + + + + + + | 2025-04-09 | Pregabalin | [facility] - | Delirium | Moderate | | 00:00 | | [facility] | | | + + + + + + | 2025-04-09 | Pregabalin | [facility] - | Delirium | Moderate | | 00:00 | | [facility] | | | + + + + + + | 2025-04-09 | Meperidine | [facility] - | Itching | Moderate | | 00:00 | | [facility] | | | + + + + + + | 2025-04-09 | meperidine | [facility] - | (no reaction) | (no severity) | | 00:00 | | [facility] | | | + + + + + + | 2025-04-09 | Penicillin g | [facility] - | Itching | Moderate | | 00:00 | | [facility] | | | + + + + + + | 2025-04-09 | penicillin G | [facility] - | (no reaction) | (no severity) | | 00:00 | | [facility] | | | + + + + + + | 2025-04-09 | Meperidine | [facility] - | Itching | Moderate | | 00:00 | | [facility] | | | + + + + + + | 2025-04-09 | Penicillin g | [facility] - | Itching | Moderate | | 00:00 | | [facility] | | | | | | [facility] | | | + + + + + + Encounters No information. Functional Status No information. Immunizations + + + + | date | description | facility | + + + + | (no date) | No vaccine administered | [facility] | | | | [facility] | + + + + Medications + + + + | date | description | facility | + + + + | 2025-04-09 00:00 | ONDANSETRON | [facility] | | | | [facility] | + + + + | 2025-04-09 00:00 | ondansetron 4 MG | [facility] | | | Disintegrating Oral Tablet | [facility] | + + + + | (no date) | OXYCODONE HCL | [facility] | | | | [facility] | + + + + | (no date) | oxycodone hydrochloride 5 | [facility] | | | MG Oral Tablet | [facility] | + + + + | (no date) | OXYCODONE | [facility] | | | HCL/ACETAMINOPHEN | [facility] | + + + + | (no date) | acetaminophen 325 MG / | [facility] | | | oxycodone hydrochloride 10 | [facility] | | | MG Oral Ta | | + + + + | (no date) | PHENAZOPYRIDINE HCL | [facility] | | | | [facility] | + + + + | (no date) | phenazopyridine | [facility] | | | hydrochloride 200 MG Oral | [facility] | | | Tablet | | + + + + | (no date) | Lidocaine | [facility] | | | | [facility] | + + + + | (no date) | lidocaine 0.05 MG/MG | [facility] | | | Topical Ointment | [facility] | + + + + | (no date) | BACLOFEN | [facility] | | | | [facility] | + + + + | (no date) | baclofen 10 MG Oral Tablet | [facility] | | | | [facility] | + + + + | (no date) | LEVOFLOXACIN | [facility] | | | | [facility] | + + + + | (no date) | levofloxacin 500 MG Oral | [facility] | | | Tablet | [facility] | + + + + | 2025-04-09 00:00 | SUCRALFATE | [facility] | | | | [facility] | + + + + | 2025-04-09 00:00 | sucralfate 1000 MG Oral | [facility] | | | Tablet [Carafate] | [facility] | + + + + | (no date) | CELECOXIB | [facility] | | | | [facility] | + + + + | (no date) | celecoxib 200 MG Oral | [facility] | | | Capsule [Celebrex] | [facility] | + + + + | (no date) | NABUMETONE | [facility] | | | | [facility] | + + + + | (no date) | nabumetone 500 MG Oral | [facility] | | | Tablet | [facility] | + + + + | (no date) | PROCHLORPERAZINE MALEATE | [facility] | | | | [facility] | + + + + | (no date) | prochlorperazine 5 MG Oral | [facility] | | | Tablet | [facility] | + + + + | (no date) | SUMATRIPTAN SUCCINATE | [facility] | | | | [facility] | + + + + | (no date) | sumatriptan 100 MG Oral | [facility] | | | Tablet | [facility] | + + + + | (no date) | OMEPRAZOLE | [facility] | | | | [facility] | + + + + | (no date) | omeprazole 20 MG Delayed | [facility] | | | Release Oral Tablet | [facility] | + + + + | (no ) | DULOXETINE HCL | [facility] | | | | [facility] | + + + + | (no date) | duloxetine 60 MG Delayed | [facility] | | | Release Oral Capsule | [facility] | | | [Cymbalta] | | + + + + | (no date) | ATORVASTATIN | [facility] | | | | [facility] | + + + + | (no date) | atorvastatin 40 MG Oral | [facility] | | | Tablet [Lipitor] | [facility] | + + + + | (no date) | GLUCOSAMINE HCL | [facility] | | | | [facility] | + + + + | (no date) | glucosamine 500 MG Oral | [facility] | | | Tablet | [facility] | + + + + | (no date) | 24 HR oxybutynin chloride | [facility] | | | 5 MG Extended Release Oral | [facility] | | | Tablet | | + + + + | (no date) | OXYBUTYNIN CHLORIDE | [facility] | | | | [facility] | + + + + | (no date) | OXYBUTYNIN CHLORIDE | [facility] | | | | [facility] | + + + + | (no date) | oxybutynin chloride 5 MG | [facility] | | | Oral Tablet | [facility] | + + + + | (no date) | TAMSULOSIN HCL | [facility] | | | | [facility] | + + + + | (no date) | tamsulosin hydrochloride | [facility] | | | 0.4 MG Oral Capsule | [facility] | + + + + | (no date) | 168 HR buprenorphine 0.01 | [facility] | | | MG/HR Transdermal System | [facility] | | | [BuTrans] | | + + + + | (no date) | BUPRENORPHINE | [facility] | | | | [facility] | + + + + Problems + + + + | date | description | facility | + + + + | 2025-04-09 00:00 | Chemotherapy induced | [facility] | | | nausea and vomiting | [facility] | + + + + | 2025-04-09 00:00 | GERD (gastroesophageal | [facility] | | | reflux disease) | [facility] | + + + + | 2025-04-09 00:00 | Gastroesophageal reflux | [facility] | | | disease | [facility] | + + + + | 2025-04-09 00:00 | Chemotherapy-induced | [facility] | | | nausea and vomiting | [facility] | + + + + | 2025-04-11 00:00 | Dehydration | [facility] | | | | [facility] | + + + + Procedures No information. Results/Labs +--------+--------+ +---------+--------+---------+ | test | date | facility | value | unit | notes | +--------+--------+ +---------+--------+---------+ + + | Result panel 1 | + + + + + +-------+ + + | Serum or | 2025-04-09 | | 1.7 | (missing) | (missing) | | plasma | 20:40 | [facility] | | | | | magnesium | [facility] measurement | | [facility] | | | | | (mass/volume | | Hospital | | | | | ) | | | | | | + + + +-------+ + + + + | Result panel 2 | + + + + + +-------+ + + | Serum or | 2025-04-09 | | 7.3 | (missing) | (missing) | | plasma | 20:40 | [facility] | | | | | protein | | [facility] | [facility] | | measurement | | [facility] | | | | | (mass/volume | | Hospital | | | | | ) | | | | | | + + + +-------+ + + + + | Result panel 3 | + + + + + +-------+ + + | Serum or | 2025-04-09 | | 3.5 | (missing) | (missing) | | plasma | 20:40 | [facility] | | | | | albumin | | [facility] | [facility] | measurement | | [facility] | | | | | (mass/volume | | Hospital | | | | | ) | | | | | | + + + +-------+ + + + + | Result panel 4 | + + + + + +-------+ + + | Serum | 2025-04-09 | | 3.8 | (missing) | (missing) | | globulin | 20:40 | [facility] | | | | | measurement | | - [facility] | | | | (mass/volume | | [facility] | | | | | ) | | [facility] | | | | + + + +-------+ + + + + | Result panel 5 | + + + + + +--------+ + + | Serum or | 2025-04-09 | | 0.92 | (missing) | (missing) | | plasma | 20:40 | [facility] | | | | | albumin/glob | | [facility] | | | | ulin mass | | [facility] | | | | | ratio | | Hospital | | | | + + + +--------+ + + + + | Result panel 6 | + + + + + +-------+ + + | Serum or | 2025-04-09 | | 1.2 | (missing) | (missing) | | plasma total | 20:40 | [facility] | | | | | bilirubin | | - [facility] | [facility] | | measurement | | [facility] | | | | | (mass/volume | | Hospital | | | | | ) | | | | | | + + + +-------+ + + + + | Result panel 7 | + + + + + +------+ + + | Serum or | 2025-04-09 | | 19 | (missing) | (missing) | | plasma | 20:40 | [facility] | | | | | aspartate | | - [facility] | | | | | aminotransfe | | [facility] | | | | | rase | | Hospital | | | | | measurement | | | | | | | (enzymatic | | | | | | | activity/vol | | | | | | | ume) | | | | | | + + + +------+ + + + + | Result panel 8 | + + + + + +------+ + + | Serum or | 2025-04-09 | | 24 | (missing) | (missing) | | plasma | 20:40 | [facility] | | | | | alanine | | - [facility] | | | | | aminotransfe | | [facility] | | | | | rase | | Hospital | | | | | measurement | | | | | | | (enzymatic | | | | | | | activity/vol | | | | | | | ume) | | | | | | + + + +------+ + + + + | Result panel 9 | + + + + + +-------+ + + | Serum or | 2025-04-09 | | 111 | (missing) | (missing) | | plasma | 20:40 | [facility] | | | | | alkaline | | - [facility] | | | | | phosphatase | | [facility] | | | | | measurement | | Hospital | | | | | (enzymatic | | | | | | | activity/vol | | | | | | | ume) | | | | | | + + + +-------+ + + + + | Result panel 10 | + + + + + +------+ + + | Serum or | 2025-04-09 | | 23 | (missing) | (missing) | | plasma | 20:40 | [facility] | | | | | lipase | [facility] - [facility] | [facility] | measurement | | [facility] | | | | | (enzymatic | | Hospital | | | | | activity/vol | | | | | | | ume) | | | | | | + + + +------+ + + + + | Result panel 11 | + + + + + +-------+ + + | Serum or | 2025-04-09 | | 7.3 | (missing) | (missing) | | plasma | 20:40 | [facility] | | | | | cardiac | | - [facility] | | | | | troponin I | | [facility] | | | | | measurement | | Hospital | | | | | by high | | | | | | | senstivity | | | | | | | method | | | | | | | (mass/volume | | | | | | | ) | | | | | | + + + +-------+ + + + + | Result panel 12 | + + + + + +-------+ + + | Serum or | 2025-04-09 | | 1.7 | (missing) | (missing) | | plasma | 20:40 | [facility] | | | | | magnesium | | - [facility] | | | | | measurement | | [facility] | | | | | (mass/volume | | Hospital | | | | | ) | | | | | | + + + +-------+ + + + + | Result panel 13 | + + + + + +-------+ + + | Serum or | 2025-04-09 | | 7.3 | (missing) | (missing) | | plasma | 20:40 | [facility] | | | | | cardiac | | - [facility] | | | | | troponin I | | [facility] | | | | | measurement | | Hospital | | | | | by high | | | | | | | senstivity | | | | | | | method | | | | | | | (mass/volume | | | | | | | ) | | | | | | + + + +-------+ + + + + | Result panel 14 | + + + + + +------+ + + | Serum or | 2025-04-09 | | 97 | (missing) | (missing) | | plasma | 20:40 | [facility] | | | | | glucose | | - [facility] | | [facility] | | measurement | | [facility] | | | | | (mass/volume | | Hospital | | | | | ) | | | | | | + + + +------+ + + + + | Result panel 15 | + + + + + +------+ + + | Serum or | 2025-04-09 | | 20 | (missing) | (missing) | | plasma urea | 20:40 | [facility] | | | | | nitrogen | | - [facility] | | | | | measurement | | [facility] | | | | | (mass/volume | | Hospital | | | | | ) | | | | | | + + + +------+ + + + + | Result panel 16 | + + + + + +--------+ + + | Serum or | 2025-04-09 | | 1.22 | (missing) | (missing) | | plasma | 20:40 | [facility] | | | | | creatinine | | - [facility] | | | | | measurement | | [facility] | | | | | (mass/volume | | Hospital | | | | | ) | | | | | | + + + +--------+ + + + + | Result panel 17 | + + + + + +------+ + + | Glomerular | 2025-04-09 | | 65 | (missing) | (missing) | | filtration | 20:40 | [facility] | | | | | rate/1.73 sq | | - [facility] | | | | | M.predicted | | [facility] | | | | | [Volume | | Hospital | | | | | Rate/Area] | | | | | | | inSerum, | | | | | | | Plasma or | | | | | | | Blood by | | | | | | | Creatinine-b | | | | | | | ased formula | | | | | | | (CKD-EPI | | | | | | | 2020) | | | | | | + + + +------+ + + + + | Result panel 18 | + + + + + +---------+ + + | Serum or | 2025-04-09 | | 16.39 | (missing) | (missing) | | plasma urea | 20:40 | [facility] | | | | | nitrogen/cre | | - [facility] | | | | | atinine mass | | [facility] | | | | | ratio | | Hospital | | | | + + + +---------+ + + + + | Result panel 19 | + + + + + +-------+ + + | Serum or | 2025-04-09 | | 134 | (missing) | (missing) | | plasma | 20:40 | [facility] | | | | | sodium | | - [facility] | | | | | measurement | | [facility] | | | | | (moles/volum | | Hospital | | | | | e) | | | | | | + + + +-------+ + + + + | Result panel 20 | + + + + + +-------+ + + | Serum or | 2025-04-09 | | 3.3 | (missing) | (missing) | | plasma | 20:40 | [facility] | | | | | potassium | | - [facility] | | | | | measurement | | [facility] | | | | | (moles/volum | | Hospital | | | | | e) | | | | | | + + + +-------+ + + + + | Result panel 21 | + + + + + +------+ + + | Serum or | 2025-04-09 | | 97 | (missing) | (missing) | | plasma | 20:40 | [facility] | | | | | chloride | | - [facility] | | | | | measurement | | [facility] | | | | | (moles/volum | | Hospital | | | | | e) | | | | | | + + + +------+ + + + + | Result panel 22 | + + + + + +------+ + + | Serum or | 2025-04-09 | | 23 | (missing) | (missing) | | plasma | 20:40 | [facility] | | | | | carbon | | - [facility] | | | | | dioxide, | | [facility] | | | | | total | | Hospital | | | | | measurement | | | | | | | (moles/volum | | | | | | | e) | | | | | | + + + +------+ + + + + | Result panel 23 | + + + + + +--------+ + + | Serum or | 2025-04-09 | | 17.3 | (missing) | (missing) | | plasma anion | 20:40 | [facility] | | | | | gap 4 | [facility] | [facility] | | [facility] | | [facility] | | | | + + + +--------+ + + + + | Result panel 24 | + + + + + +-------+ + + | Serum or | 2025-04-09 | | 9.4 | (missing) | (missing) | | plasma | 20:40 | [facility] | | | | | calcium | | [facility] | | [facility] | | measurement | | [facility] | | | | | (mass/volume | | Hospital | | | | | ) | | | | | | + + + +-------+ + + + + | Result panel 25 | + + + + + +------+---------+ + | Glucose | 2025-04-09 | | 97 | mg/dL | (missing) | | SerPl-mCnc | 20:40:07 | [facility] | | | | | | [facility] | | [facility] | | | | | | [facility] | | | | + + + +------+---------+ + + + | Result panel 26 | + + + + + +------+---------+ + | BUN | 2025-04-09 | | 20 | mg/dL | (missing) | | [facility] | 20:40:07 | [facility] | | | | | | [facility] | | | | | | [facility] | | | | + + + +------+---------+ + + + | Result panel 27 | + + + + + +--------+---------+ + | Creat | 2025-04-09 | | 1.22 | mg/dL | (missing) | | SerPl-mCnc | 20:40:07 | [facility] | | | | | | [facility] | [facility] | | [facility] | | [facility] | | | | + + + +--------+---------+ + + + | Result panel 28 | + + + + + +------+ + + | eGFRcr | 2025-04-09 | | 65 | (missing) | (missing) | | SerPlBld | 20:40:07 | [facility] | | | | | CKD-EPI 2020 | [facility] | | | | | [facility] | | | | + + + +------+ + + + + | Result panel 29 | + + + + + +---------+ + + | BUN/Creat | 2025-04-09 | | 16.39 | (missing) | (missing) | | SerPl | 20:40:07 | [facility] | | | | | | [facility] | | [facility] | | [facility] | | | | + + + +---------+ + + + + | Result panel 30 | + + + + + +-------+ + + | Sodium | 2025-04-09 | | 134 | (missing) | (missing) | | SerPl-sCnc | 20:40:07 | [facility] | | | | | | [facility] | | [facility] | | | [facility] | | | | + + + +-------+ + + + + | Result panel 31 | + + + + + +-------+ + + | Potassium | 2025-04-09 | | 3.3 | (missing) | (missing) | | SerPl-sCnc | 20:40:07 | [facility] | | | | | | [facility] | | [facility] | | [facility] | | | [facility] | | | | + + + +-------+ + + + + | Result panel 32 | + + + + + +------+ + + | Chloride | 2025-04-09 | | 97 | (missing) | (missing) | | SerPl-sCnc | 20:40:07 | [facility] | | | | | | [facility] | | [facility] | | [facility] | | | [facility] | | | | + + + +------+ + + + + | Result panel 33 | + + + + + +------+ + + | CO2 | 2025-04-09 | | 23 | (missing) | (missing) | | SerPl-sCnc | 20:40:07 | [facility] | | | | | | [facility] | | [facility] | | [facility] | | | [facility] | | | | + + + +------+ + + + + | Result panel 34 | + + + + + +--------+ + + | Anion Gap | 2025-04-09 | | 17.3 | (missing) | (missing) | | SerPl | 20:40:07 | [facility] | | | | | Calculated.4 | | [facility] | Ions-sCnc | | [facility] | | | | | | [facility] | | | | + + + +--------+ + + + + | Result panel 35 | + + + + + +-------+---------+ + | Calcium | 2025-04-09 | | 9.4 | mg/dL | (missing) | | [facility] | 20:40:07 | [facility] | | | | | | [facility] | | [facility] | | | | | | [facility] | | | | + + + +-------+---------+ + + + | Result panel 36 | + + + + + +-------+---------+ + | Magnesium | 2025-04-09 | | 1.7 | mg/dL | (missing) | | SerPl-mCnc | 20:40:07 | [facility] | [facility] | [facility] | | [facility] | | [facility] | | | [facility] | | | | + + + +-------+---------+ + + + | Result panel 37 | + + + + + +-------+ + + | Prot | 2025-04-09 | | 7.3 | (missing) | (missing) | | [facility] | 20:40:07 | [facility] | [facility] | [facility] | | | | + + + +-------+ + + + + | Result panel 38 | + + + + + +-------+ + + | Albumin | 2025-04-09 | | 3.5 | (missing) | (missing) | | SerPl-mCnc | 20:40:07 | [facility] | | | | [facility] | [facility] | | | | + + + +-------+ + + + + | Result panel 39 | + + + + + +-------+ + + | Globulin | 2025-04-09 | | 3.8 | (missing) | (missing) | | Ser-mCnc | 20:40:07 | [facility] | | | | | | [facility] | [facility] | | [facility] | | [facility] | | | | + + + +-------+ + + + + | Result panel 40 | + + + + + +--------+ + + | | 2025-04-09 | | 0.92 | (missing) | (missing) | | Albumin/Glob | 20:40:07 | [facility] | | | | | SerPl | [facility] | | | | | | [facility] | | | | + + + +--------+ + + + + | Result panel 41 | + + + + + +-------+---------+ + | Bilirub | 2025-04-09 | | 1.2 | mg/dL | (missing) | | SerPl-mCnc | 20:40:07 | [facility] | | | | | [facility] | | [facility] | | [facility] | | | [facility] | | | | + + + +-------+---------+ + + + | Result panel 42 | + + + + + +------+ + + | AST | 2025-04-09 | | 19 | (missing) | (missing) | | SerPl-cCnc | 20:40:07 | [facility] | | | | | [facility] | | [facility] | | [facility] | [facility] | | | | + + + +------+ + + + + | Result panel 43 | + + + + + +------+ + + | ALT | 2025-04-09 | | 24 | (missing) | (missing) | | SerPl-cCnc | 20:40:07 | [facility] | | | | | | [facility] | | [facility] | | | | | | [facility] | | | | + + + +------+ + + + + | Result panel 44 | + + + + + +-------+ + + | ALP | 2025-04-09 | | 111 | (missing) | (missing) | | SerPl-cCnc | 20:40:07 | [facility] | | [facility] | [facility] | | [facility] | | [facility] | | | [facility] | | | | + + + +-------+ + + + + | Result panel 45 | + + + + + +------+ + + | Lipase | 2025-04-09 | | 23 | (missing) | (missing) | | SerPl-cCnc | 20:40:07 | [facility] | | [facility] | | [facility] | | [facility] | | [facility] | | | | + + + +------+ + + + + | Result panel 46 | + + + + + +-------+ + + | Troponin I | 2025-04-09 | | 7.3 | (missing) | (missing) | | SerPl | 20:40:07 | [facility] | | | | | [facility] | | - | | | | | | | [facility] | | [facility] | [facility] | | | | + + + +-------+ + + + + | Result panel 47 | + + + + + +--------+ + + | Blood | 2025-04-09 | | 4.35 | (missing) | (missing) | | leukocytes | 21:30 | [facility] | | | | | automated | | [facility] | | | | | count | | [facility] | | | | | (number/volu | | Hospital | | | | | me) | | | | | | + + + +--------+ + + + + | Result panel 48 | + + + + + +--------+ + + | Blood | 2025-04-09 | | 4.44 | (missing) | (missing) | | erythrocytes | 21:30 | [facility] | | | | | automated | [facility] | [facility] | count | | [facility] | | | | | (number/volu | | Hospital | | | | | me) | | | | | | + + + +--------+ + + + + | Result panel 49 | + + + + + +--------+ + + | Blood | 2025-04-09 | | 10.3 | (missing) | (missing) | | hemoglobin | 21:30 | [facility] | | | | | measurement | | [facility] | [facility] | | (mass/volume | | [facility] | | | | | ) | | [facility] | | | | + + + +--------+ + + + + | Result panel 50 | + + + + + +--------+ + + | Automated | 2025-04-09 | | 32.1 | (missing) | (missing) | | blood | 21:30 | [facility] | | | | | hematocrit | [facility] | | | | [facility] | | | | | | [facility] | | | | + + + +--------+ + + + + | Result panel 51 | + + + + + +--------+ + + | Automated | 2025-04-09 | | 72.3 | (missing) | (missing) | | erythrocyte | 21:30 | [facility] | | | | | mean | [facility] corpus[facility] | | [facility] | | | | | volume | | [facility] | | | | + + + +--------+ + + + + | Result panel 52 | + + + + + +--------+ + + | Automated | 2025-04-09 | | 23.2 | (missing) | (missing) | | erythrocyte | 21:30 | [facility] | | | | | mean | [facility] - [facility] corpuscular | | [facility] | | | | | hemoglobin | | [facility] | | | | | (mass per | | | | | | | erythrocyte) | | | | | | | | | | | | | + + + +--------+ + + + + | Result panel 53 | + + + + + +--------+ + + | Automated | 2025-04-09 | | 32.1 | (missing) | (missing) | | erythrocyte | 21:30 | [facility] | | | | | mean | | - [facility] | | [facility] | | corpuscular | | [facility] | | | | | hemoglobin | | Hospital | | | | | concentratio | | | | | | | n | | | | | | | measurement | | | | | | | (mass/volume | | | | | | | ) | | | | | | + + + +--------+ + + + + | Result panel 54 | + + + + + +-------+ + + | Automated | 2025-04-09 | | 423 | (missing) | (missing) | | blood | 21:30 | [facility] | | | | | platelet | | [facility] | | | | | (count/volum | | [facility] | | | | | e) | | | | | | + + + +-------+ + + + + | Result panel 55 | + + + + + +--------+ + + | Automated | 2025-04-09 | | 82.6 | (missing) | (missing) | | blood | 21:30 | [facility] | | | | | neutrophil | | - [facility] count [facility] | | [facility] | | | | | percentage | | Hospital | | | | | of total | | | | | | | leukocytes | | | | | | + + + +--------+ + + + + | Result panel 56 | + + + + + +--------+ + + | Automated | 2025-04-09 | | 10.8 | (missing) | (missing) | | blood | 21:30 | [facility] | | | | | lymphocyte | | - [facility] | | [facility] | | | | | percentage | | Hospital | | | | | ot total | | | | | | | leukocytes | | | | | | + + + +--------+ + + + + | Result panel 57 | + + + + + +-------+ + + | Automated | 2025-04-09 | | 5.7 | (missing) | (missing) | | blood | 21:30 | [facility] | | | | | monocyte | | - [facility] | | [facility] | | | | | percentage | | Hospital | | | | | of total | | | | | | | leukocytes | | | | | | + + + +-------+ + + + + | Result panel 58 | + + + + + +-------+ + + | Automated | 2025-04-09 | | 0.2 | (missing) | (missing) | | blood | 21:30 | [facility] | | | | | eosinophil | | - [facility] count [facility] | | [facility] | | | | | percentage | | Hospital | | | | | of total | | | | | | | leukocytes | | | | | | + + + +-------+ + + + + | Result panel 59 | + + + + + +-----+ + + | Automated | 2025-04-09 | | 0 | (missing) | (missing) | | blood | 21:30 | [facility] | | | | | basophil | | - [facility] count [facility] | | [facility] | | | | | percentage | | Hospital | | | | | of total | | | | | | | leukocytes | | | | | | + + + +-----+ + + + + | Result panel 60 | + + + + + +--------+ + + | WBC # Bld | 2025-04-09 | | 4.35 | (missing) | (missing) | | Auto | 21:30:07 | [facility] | | | | | | [facility] | | | | + + + +--------+ + + + + | Result panel 61 | + + + + + +--------+ + + | Lymphocytes | 2025-04-09 | | 10.8 | (missing) | (missing) | | NFr Bld | 21:30:07 | [facility] | | | | | Auto | | - [facility] | | | | + + + +--------+ + + + + | Result panel 62 | + + + + + +-------+ + + | Monocytes | 2025-04-09 | | 5.7 | (missing) | (missing) | | NFr Bld Auto | 21:30:07 | [facility] | | | | | | [facility] | | | | + + + +-------+ + + + + | Result panel 63 | + + + + + +-------+ + + | Eosinophil | 2025-04-09 | | 0.2 | (missing) | (missing) | | NFr Bld Auto | 21:30:07 | [facility] | | | | | | [facility] | | | | + + + +-------+ + + + + | Result panel 64 | + + + + + +-----+ + + | Basophils | 2025-04-09 | | 0 | (missing) | (missing) | | NFr Bld Auto | 21:30:07 | [facility] | | | | | | [facility] | | [facility] | | | | + + + +-----+ + + + + | Result panel 65 | + + + + + +--------+ + + | RBC # Bld | 2025-04-09 | | 4.44 | (missing) | (missing) | | Auto | 21:30:07 | [facility] | | | | | | [facility] | | [facility] | | | | + + + +--------+ + + + + | Result panel 66 | + + + + + +--------+ + + | Hgb | 2025-04-09 | | 10.3 | (missing) | (missing) | | Bld-mCnc | 21:30:07 | [facility] | | | | | | | - | | | | | | | [facility] | | | | | | [facility] | | | | + + + +--------+ + + + + | Result panel 67 | + + + + + +--------+ + + | Hct VFr.DF | 2025-04-09 | | 32.1 | (missing) | (missing) | | Bld Auto | 21:30:07 | [facility] | | | | | | [facility] | | | | + + + +--------+ + + + + | Result panel 68 | + + + + + +--------+ + + | RBC Auto | 2025-04-09 | | 72.3 | (missing) | (missing) | | | 21:30:07 | [facility] | | | | | | [facility] | [facility] | | | | + + + +--------+ + + + + | Result panel 69 | + + + + + +--------+ + + | MCH RBC Qn | 2025-04-09 | | 23.2 | (missing) | (missing) | | Auto | 21:30:07 | [facility] | | | | | | [facility] | [facility] | | [facility] | | | | + + + +--------+ + + + + | Result panel 70 | + + + + + +--------+ + + | MCHC RBC | 2025-04-09 | | 32.1 | (missing) | (missing) | | Auto-EntMCnc | :30:07 | [facility] | | | | | | [facility] - [facility] | [facility] | | [facility] | | | | + + + +--------+ + + + + | Result panel 71 | + + + + + +-------+ + + | Platelet # | 2025-04-09 | | 423 | (missing) | (missing) | | Bld Auto | 21:30:07 | [facility] | | | | | | [facility] | | [facility] | | | | + + + +-------+ + + + + | Result panel 72 | + + + + + +--------+ + + | Neutrophils | 2025-04-09 | | 82.6 | (missing) | (missing) | | NFr Bld | 21:30:07 | [facility] | | | | | Auto | | - [facility] | [facility] | | [facility] | | | | + + + +--------+ + + + + | Result panel 73 | + + + + + + + + + | Color of | 2025-04-09 | | YELLOW | (missing) | (missing) | | Urine by | 22:25 | [facility] | | | | | Auto | | - [facility] | [facility] | | [facility] | | | | + + + + + + + + + | Result panel 74 | + + + + + +---------+ + + | Character | 2025-04-09 | | CLEAR | (missing) | (missing) | | of Urine | 22:25 | [facility] | | | | | | | [facility] | [facility] | | | | + + + +---------+ + + + + | Result panel 75 | + + + + + + + + + | Glucose | 2025-04-09 | | NEGATIVE | (missing) | (missing) | | [Presence] | 22:25 | [facility] | | | | | in Urine by | | - [facility] | | [facility] | Test strip | | [facility] | | [facility] | | | [facility] | | | | + + + + + + + + + | Result panel 76 | + + + + + + + + + | Urine total | 2025-04-09 | | NEGATIVE | (missing) | (missing) | | bilirubin | 22:25 | [facility] | | | | | detection by | | - [facility] | | [facility] | | test strip | | [facility] | [facility] | | | [facility] | | | | + + + + + + + + + | Result panel 77 | + + + + + +--------+ + + | Urine | 2025-04-09 | | >=80 | (missing) | (missing) | | ketones | 22:25 | [facility] | | | | | detection by | | - [facility] | | [facility] | | test strip | | [facility] | | [facility] | | | [facility] | | | | + + + +--------+ + + + + | Result panel 78 | + + + + + +---------+ + + | Specific | 2025-04-09 | | 1.020 | (missing) | (missing) | | gravity ur | 22:25 | [facility] | | | | | dipstick | | - [facility] | | | | + + + +---------+ + + + + | Result panel 79 | + + + + + + + + + | Urine | 2025-04-09 | | MODERATE | (missing) | (missing) | | hemoglobin | 22:25 | [facility] | | | | | detection by | | - [facility] | | | | | test strip | | [facility] | | [facility] | | | [facility] | | | | + + + + + + + + + | Result panel 80 | + + + + + +-------+ + + | Urine pH | 2025-04-09 | | 6.0 | (missing) | (missing) | | measurement | 22:25 | [facility] | | | | | by test | | - [facility] | | | | | strip | | [facility] | | | | | | | [facility] | | | | + + + +-------+ + + + + | Result panel 81 | + + + + + +------+ + + | Protein | 2025-04-09 | | 30 | (missing) | (missing) | | urine test | 22:25 | [facility] | | | | | strip | | - [facility] | | | | | | [facility] | | | | | | [facility] | | | | + + + +------+ + + + + | Result panel 82 | + + + + + +-------+ + + | | 2025-04-09 | | 1.0 | (missing) | (missing) | | Urobilinogen | 22:25 | [facility] | | | | | | | - [facility] | | | | | [Mass/volume | | [facility] | | | | | ] in Urine | | Hospital | | | | | by Test | | | | | | | strip | | | | | | + + + +-------+ + + + + | Result panel 83 | + + + + + + + + + | Urine | 2025-04-09 | | NEGATIVE | (missing) | (missing) | | nitrite | 22:25 | [facility] | | | | | detection by | | - [facility] | | | | | test strip | | [facility] | | | | | | | [facility] | | | | + + + + + + + + + | Result panel 84 | + + + + + + + + + | Urine | 2025-04-09 | | NEGATIVE | (missing) | (missing) | | leukocyte | 22:25 | [facility] | | | | | esterase | | - [facility] | | [facility] | detection by | | [facility] | | | | | dipstick | | Hospital | | | | + + + + + + + + + | Result panel 85 | + + + + + +---------+ + + | Automated | 2025-04-09 | | 12-20 | (missing) | (missing) | | urine | 22:25 | [facility] | | | | | sediment | | - [facility] | | | | | erythrocyte | | [facility] | | | | | count by | | Hospital | | | | | microscopy | | | | | | | (number/high | | | | | | | power | | | | | | | field) | | | | | | + + + +---------+ + + + + | Result panel 86 | + + + + + +-------+ + + | Automated | 2025-04-09 | | 4-6 | (missing) | (missing) | | urine | 22:25 | [facility] | | | | | sediment | | - [facility] | | | | | leukocyte | | [facility] | | | | | count by | | Hospital | | | | | microscopy | | | | | | | (number/high | | | | | | | power | | | | | | | field) | | | | | | + + + +-------+ + + + + | Result panel 87 | + + + + + + + + + | Automated | 2025-04-09 | | SQUAMOUS 1+ | (missing) | (missing) | | urine | 22:25 | [facility] | | | | | sediment | | - [facility] | | | | | epithelial | | [facility] | | | | | cell count | | Hospital | | | | | by | | | | | | | microscopy | | | | | | | (number/high | | | | | | | power | | | | | | | field) | | | | | | + + + + + + + + + | Result panel 88 | + + + + + + + + + | Crystal | 2025-04-09 | | NONE SEEN | (missing) | (missing) | | typing in | 22:25 | [facility] | | | | | urine | | - [facility] | | | | | sediment by | | [facility] | | | | | light | | Hospital | | | | | microscopy | | | | | | + + + + + + + + + | Result panel 89 | + + + + + +------+ + + | Automated | 2025-04-09 | | 1+ | (missing) | (missing) | | urine | 22:25 | [facility] | | | | | sediment | | - [facility] | | | | | bacteria | | [facility] | | | | | count by | | Hospital | | | | | microscopy | | | | | | | (number/high | | | | | | | power | | | | | | | field) | | | | | | + + + +------+ + + + + | Result panel 90 | + + + + + + + + + | Automated | 2025-04-09 | | NONE SEEN | (missing) | (missing) | | casts count | 22:25 | [facility] | | | | | in urine | | - [facility] | | | | | sediment by | | [facility] | | | | | microscopy | | Hospital | | | | | low power | | | | | | | field | | | | | | | (number/area | | | | | | | ) | | | | | | + + + + + + + + + | Result panel 91 | + + + + + +------+ + + | Reflexive | 2025-04-09 | | No | (missing) | (missing) | | urine | 22:25 | [facility] | | | | | bacterial | | - [facility] | | [facility] | culture | | [facility] | | | | | | | [facility] | | | | + + + +------+ + + + + | Result panel 92 | + + + + + + + + + | Urinalysis | 2025-04-09 | | CLEAN CATCH | (missing) | (missing) | | specimen | 22:25 | [facility] | | | | | collection | | - [facility] | | | | | method | | [facility] | | | | | | | [facility] | | | | + + + + + + + + + | Result panel 93 | + + + + + + + + + | Color Ur | 2025-04-09 | | YELLOW | (missing) | (missing) | | Auto | 22:25:07 | [facility] | | | | | | | - [facility] | | | | | | [facility] | | | | | | | [facility] | | | | + + + + + + + + + | Result panel 94 | + + + + + +---------+ + + | Character | 2025-04-09 | | CLEAR | (missing) | (missing) | | Ur | ::07 | [facility] | | | | | | | - [facility] | [facility] | | | [facility] | | | | | | [facility] | | | | + + + +---------+ + + + + | Result panel 95 | + + + + + + + + + | Glucose Ur | 2025-04-09 | | NEGATIVE | (missing) | (missing) | | Ql Strip | 22:25:07 | [facility] | | | | | | | - [facility] | [facility] | | | [facility] | | | | | | [facility] | | | | + + + + + + + + + | Result panel 96 | + + + + + + + + + | Argelia Mattson | 2025-04-09 | | NEGATIVE | (missing) | (missing) | | Ql Strip | 22:25:07 | [facility] | | | | | | | - [facility] | | | [facility] | | [facility] | | | [facility] | | | | + + + + + + + + + | Result panel 97 | + + + + + +--------+ + + | Ning Mattson | 2025-04-09 | | >=80 | (missing) | (missing) | | Ql Strip | 22::07 | [facility] | | | | | | | - [facility] | [facility] | | | [facility] | | [facility] | | | [facility] | | | | + + + +--------+ + + + + | Result panel 98 | + + + + + +---------+ + + | Sp Gr Ur | 2025-04-09 | | 1.020 | (missing) | (missing) | | Strip | 22::07 | [facility] | | | | | | | - [facility] | | [facility] | | | | | | [facility] | | | | + + + +---------+ + + + + | Result panel 99 | + + + + + + + + + | Hgb Ur Ql | 2025-04-09 | | MODERATE | (missing) | (missing) | | Strip | 22:25:07 | [facility] | | | | | | [facility] - [facility] | [facility] | | | [facility] | | [facility] | | | [facility] | | | | + + + + + + + + + | Result panel 100 | + + + + + +-------+ + + | pH Ur Strip | 2025-04-09 | | 6.0 | (missing) | (missing) | | | 22:25:07 | [facility] | | | | | | [facility] - [facility] | | | [facility] | | | | | | | [facility] | | | | + + + +-------+ + + + + | Result panel 101 | + + + + + +------+ + + | Prot Ur | 2025-04-09 | | 30 | (missing) | (missing) | | Strip-mCnc | 22::07 | [facility] | | | | | | | - [facility] | [facility] | | | | [facility] | | | | | | | [facility] | | | | + + + +------+ + + + + | Result panel 102 | + + + + + +-------+ + + | | 2025-04-09 | | 1.0 | (missing) | (missing) | | Urobilinogen | 22:25:07 | [facility] | | | | | Ur | | - [facility] | [facility] | Strip-mCnc | | [facility] | | | | | | | [facility] | | | | + + + +-------+ + + + + | Result panel 103 | + + + + + + + + + | Nitrite Ur | 2025-04-09 | | NEGATIVE | (missing) | (missing) | | Ql Strip | 22:25:07 | [facility] | | | | | | | - [facility] | [facility] | | | [facility] | | | | | | | [facility] | | | | + + + + + + + + + | Result panel 104 | + + + + + + + + + | Leukocyte | 2025-04-09 | | NEGATIVE | (missing) | (missing) | | esterase Ur | 22:25:07 | [facility] | | | | | Ql Strip | [facility] - [facility] | | [facility] | | | | | | | [facility] | | | | + + + + + + + + + | Result panel 105 | + + + + + +---------+ + + | RBC #/area | 2025-04-09 | | 12-20 | (missing) | (missing) | | UrnS HPF | 22:25:07 | [facility] | | | | | | [facility] - [facility] | [facility] | | | [facility] | | | | | | [facility] | | | | + + + +---------+ + + + + | Result panel 106 | + + + + + +-------+ + + | WBC #/area | 2025-04-09 | | 4-6 | (missing) | (missing) | | UrnS HPF | 22:25:07 | [facility] | | | | | | [facility] - [facility] | | [facility] | | | | | | | [facility] | | | | + + + +-------+ + + + + | Result panel 107 | + + + + + + + + + | Epi Cells | 2025-04-09 | | SQUAMOUS 1+ | (missing) | (missing) | | #/area UrnS | 22:25:07 | [facility] | | | | | HPF | | - [facility] | [facility] | | | [facility] | | | | | | | [facility] | | | | + + + + + + + + + | Result panel 108 | + + + + + + + + + | Crystals | 2025-04-09 | | NONE SEEN | (missing) | (missing) | | UrnS Micro | 22:25:07 | [facility] | | | | | | [facility] - [facility] | [facility] | | | [facility] | | | | | | | [facility] | | | | + + + + + + + + + | Result panel 109 | + + + + + +------+ + + | Bacteria | 2025-04-09 | | 1+ | (missing) | (missing) | | #/area UrnS | 22:25:07 | [facility] | | | | | HPF | | - [facility] | | [facility] | | | | | | | [facility] | | | | + + + +------+ + + + + | Result panel 110 | + + + + + + + + + | Casts | 2025-04-09 | | NONE SEEN | (missing) | (missing) | | #/area UrnS | 22:25:07 | [facility] | | | | | LPF | | [facility] | | | [facility] | | | | | | | [facility] | | | | + + + + + + + + + | Result panel 111 | + + + + + +------+ + + | Bacteria Ur | 2025-04-09 | | No | (missing) | (missing) | | Cult | 22:25:07 | [facility] | | | | | | [facility] | | | [facility] | | | | | | | [facility] | | | | + + + +------+ + + + + | Result panel 112 | + + + + + + + + + | Urn Spec | 2025-04-09 | | CLEAN CATCH | (missing) | (missing) | | Collect Meth | 22:25:07 | [facility] | | | | | Ur | [facility] - [facility] | | | [facility] | | | | | | | [facility] | | | | + + + + + + + + + | Result panel 113 | + + + + + +--------+ + + | Blood | 2025-04-11 | | 4.15 | (missing) | (missing) | | leukocytes | 12:41 | [facility] | | | | | automated | | - [facility] | | | | | count | | [facility] | | | | | (number/volu | | Hospital | | | | | me) | | | | | | + + + +--------+ + + + + | Result panel 114 | + + + + + +--------+ + + | Blood | 2025-04-11 | | 4.63 | (missing) | (missing) | | erythrocytes | 12:41 | [facility] | | | | | automated | | - [facility] | count | | [facility] | | | | | (number/volu | | Hospital | | | | | me) | | | | | | + + + +--------+ + + + + | Result panel 115 | + + + + + +--------+ + + | Blood | 2025-04-11 | | 10.8 | (missing) | (missing) | | hemoglobin | 12:41 | [facility] | | | | | measurement | | - [facility] | | | | | (mass/volume | | [facility] | | | | | ) | | [facility] | | | | + + + +--------+ + + + + | Result panel 116 | + + + + + +--------+ + + | Automated | 2025-04-11 | | 33.6 | (missing) | (missing) | | blood | 12:41 | [facility] | | | | | hematocrit | | - [facility] | [facility] | | | | [facility] | | | | | | [facility] | | | | + + + +--------+ + + + + | Result panel 117 | + + + + + +--------+ + + | Automated | 2025-04-11 | | 72.6 | (missing) | (missing) | | erythrocyte | 12:41 | [facility] | | | | | mean | | - [facility] | | | | | corpuscular | | [facility] | | | | | volume | | Hospital | | | | + + + +--------+ + + + + | Result panel 118 | + + + + + +--------+ + + | Automated | 2025-04-11 | | 23.3 | (missing) | (missing) | | erythrocyte | 12:41 | [facility] | | | | | mean | | - [facility] | | | | | corpuscular | | [facility] | | | | | hemoglobin | | Hospital | | | | | (mass per | | | | | | | erythrocyte) | | | | | | | | | | | | | + + + +--------+ + + + + | Result panel 119 | + + + + + +--------+ + + | Automated | 2025-04-11 | | 32.1 | (missing) | (missing) | | erythrocyte | 12:41 | [facility] | | | | | mean | | - [facility] | | | | | corpuscular | | [facility] | | | | | hemoglobin | | Hospital | | | | | concentratio | | | | | | | n | | | | | | | measurement | | | | | | | (mass/volume | | | | | | | ) | | | | | | + + + +--------+ + + + + | Result panel 120 | + + + + + +-------+ + + | Automated | 2025-04-11 | | 435 | (missing) | (missing) | | blood | 12:41 | [facility] | | | | | platelet | | - [facility] | | | | | count | | [facility] | | | | | (count/volum | | Hospital | | | | | e) | | | | | | + + + +-------+ + + + + | Result panel 121 | + + + + + +--------+ + + | Automated | 2025-04-11 | | 78.6 | (missing) | (missing) | | blood | 12:41 | [facility] | | | | | neutrophil | | - [facility] | | | | | count as | | [facility] | | | | | percentage | | Hospital | | | | | of total | | | | | | | leukocytes | | | | | | + + + +--------+ + + + + | Result panel 122 | + + + + + +--------+ + + | Automated | 2025-04-11 | | 17.6 | (missing) | (missing) | | blood | 12:41 | [facility] | | | | | lymphocyte | | - [facility] | | | | | count as | | [facility] | | | | | percentage | | Hospital | | | | | ot total | | | | | | | leukocytes | | | | | | + + + +--------+ + + + + | Result panel 123 | + + + + + +-------+ + + | Automated | 2025-04-11 | | 2.4 | (missing) | (missing) | | blood | 12:41 | [facility] | | | | | monocyte | | - [facility] | | | | | count as | | [facility] | | | | | percentage | | Hospital | | | | | of total | | | | | | | leukocytes | | | | | | + + + +-------+ + + + + | Result panel 124 | + + + + + +-------+ + + | Automated | 2025-04-11 | | 0.7 | (missing) | (missing) | | blood | 12:41 | [facility] | | | | | eosinophil | | - [facility] | | | | | count as | | [facility] | | | | | percentage | | Hospital | | | | | of total | | | | | | | leukocytes | | | | | | + + + +-------+ + + + + | Result panel 125 | + + + + + +-------+ + + | Automated | 2025-04-11 | | 0.5 | (missing) | (missing) | | blood | 12:41 | [facility] | | | | | basophil | | - [facility] | | | | | count as | | [facility] | | | | | percentage | | Hospital | | | | | of total | | | | | | | leukocytes | | | | | | + + + +-------+ + + + + | Result panel 126 | + + + + + +------+ + + | Serum or | 2025-04-11 | | 90 | (missing) | (missing) | | plasma | 12:41 | [facility] | | | | | glucose | | - [facility] | | | | | measurement | | [facility] | | | | | (mass/volume | | Hospital | | | | | ) | | | | | | + + + +------+ + + + + | Result panel 127 | + + + + + +------+ + + | Serum or | 2025-04-11 | | 18 | (missing) | (missing) | | plasma urea | 12:41 | [facility] | | | | | nitrogen | | - [facility] | | | | | measurement | | [facility] | | | | | (mass/volume | | Hospital | | | | | ) | | | | | | + + + +------+ + + + + | Result panel 128 | + + + + + +--------+ + + | Serum or | 2025-04-11 | | 1.11 | (missing) | (missing) | | plasma | 12:41 | [facility] | | | | | creatinine | | - [facility] | | | | | measurement | | [facility] | | | | | (mass/volume | | Hospital | | | | | ) | | | | | | + + + +--------+ + + + + | Result panel 129 | + + + + + +------+ + + | Glomerular | 2025-04-11 | | 73 | (missing) | (missing) | | filtration | 12:41 | [facility] | | | | | rate/1.73 sq | | - [facility] | | | | | M.predicted | | [facility] | | | | | [Volume | | Hospital | | | | | Rate/Area] | | | | | | | inSerum, | | | | | | | Plasma or | | | | | | | Blood by | | | | | | | Creatinine-b | | | | | | | ased formula | | | | | | | (CKD-EPI | | | | | | | 2020) | | | | | | + + + +------+ + + + + | Result panel 130 | + + + + + +---------+ + + | Serum or | 2025-04-11 | | 16.21 | (missing) | (missing) | | plasma urea | 12:41 | [facility] | | | | | nitrogen/cre | | - [facility] | | | | | atinine mass | | [facility] | | | | | ratio | | Hospital | | | | + + + +---------+ + + + + | Result panel 131 | + + + + + +-------+ + + | Serum or | 2025-04-11 | | 132 | (missing) | (missing) | | plasma | 12:41 | [facility] | | | | | sodium | | - [facility] | | | | | measurement | | [facility] | | | | | (moles/volum | | Hospital | | | | | e) | | | | | | + + + +-------+ + + + + | Result panel 132 | + + + + + +-------+ + + | Serum or | 2025-04-11 | | 3.1 | (missing) | (missing) | | plasma | 12:41 | [facility] | | | | | potassium | | - [facility] | | | | | measurement | | [facility] | | | | | (moles/volum | | Hospital | | | | | e) | | | | | | + + + +-------+ + + + + | Result panel 133 | + + + + + +------+ + + | Serum or | 2025-04-11 | | 97 | (missing) | (missing) | | plasma | 12:41 | [facility] | | | | | chloride | [facility] | | [facility] | | | | | (moles/volum | | Hospital | | | | | e) | | | | | | + + + +------+ + + + + | Result panel 134 | + + + + + +------+ + + | Serum or | 2025-04-11 | | 25 | (missing) | (missing) | | plasma | 12:41 | [facility] | | | | | carbon | [facility] dioxide, | | [facility] | | | | | total | | [facility] | | | | | measurement | | | | | | | (moles/volum | | | | | | | e) | | | | | | + + + +------+ + + + + | Result panel 135 | + + + + + +--------+ + + | Serum or | 2025-04-11 | | 13.1 | (missing) | (missing) | | plasma anion | 12:41 | [facility] | | | | | gap 4 | [facility] | | | | + + + +--------+ + + + + | Result panel 136 | + + + + + +-------+ + + | Serum or | 2025-04-11 | | 9.1 | (missing) | (missing) | | plasma | 12:41 | [facility] | | | | | calcium | [facility] | | [facility] | | | | | (mass/volume | | Hospital | | | | | ) | | | | | | + + + +-------+ + + + + | Result panel 137 | + + + + + +-------+ + + | Serum or | 2025-04-11 | | 6.9 | (missing) | (missing) | | plasma | 12:41 | [facility] | | | | | protein | [facility] | | [facility] | | | | | (mass/volume | | Hospital | | | | | ) | | | | | | + + + +-------+ + + + + | Result panel 138 | + + + + + +-------+ + + | Serum or | 2025-04-11 | | 3.4 | (missing) | (missing) | | plasma | 12:41 | [facility] | | | | | albumin | [facility] | | [facility] | | | | | (mass/volume | | Hospital | | | | | ) | | | | | | + + + +-------+ + + + + | Result panel 139 | + + + + + +-------+ + + | Serum | 2025-04-11 | | 3.5 | (missing) | (missing) | | globulin | 12:41 | [facility] | | | | | measurement | [facility] (mass/volume | | [facility] | | | | | ) | | [facility] | | | | + + + +-------+ + + + + | Result panel 140 | + + + + + +--------+ + + | Serum or | 2025-04-11 | | 0.97 | (missing) | (missing) | | plasma | 12:41 | [facility] | | | | | albumin/glob | [facility] ulin mass | | [facility] | | | | | ratio | | [facility] | | | | + + + +--------+ + + + + | Result panel 141 | + + + + + +-------+ + + | Serum or | 2025-04-11 | | 0.6 | (missing) | (missing) | | plasma total | 12:41 | [facility] | | | | | bilirubin | [facility] - [facility] | | [facility] | | | | | (mass/volume | | Hospital | | | | | ) | | | | | | + + + +-------+ + + + + | Result panel 142 | + + + + + +------+ + + | Serum or | 2025-04-11 | | 16 | (missing) | (missing) | | plasma | 12:41 | [facility] | | | | | aspartate [facility] | [facility] amin[facility]fe | | [facility] | | | | | rase | | [facility] | | | | | measurement | | | | | | | (enzymatic | | | | | | | activity/vol | | | | | | | ume) | | | | | | + + + +------+ + + + + | Result panel 143 | + + + + + +------+ + + | Serum or | 2025-04-11 | | 27 | (missing) | (missing) | | plasma | 12:41 | [facility] | | | | | alanine | [facility] | [facility] | | aminotransfe | | [facility] | | | | | rase | | [facility] | | | | | measurement | | | | | | | (enzymatic | | | | | | | activity/vol | | | | | | | ume) | | | | | | + + + +------+ + + + + | Result panel 144 | + + + + + +-------+ + + | Serum or | 2025-04-11 | | 109 | (missing) | (missing) | | plasma | 12:41 | [facility] | | | | | alkaline | [facility] | phosphatase | | [facility] | | | | | measurement | | [facility] | | | | | (enzymatic | | | | | | | activity/vol | | | | | | | ume) | | | | | | + + + +-------+ + + + + | Result panel 145 | + + + + + +------+ + + | Serum or | 2025-04-11 | | 22 | (missing) | (missing) | | plasma | 12:41 | [facility] | | | | | lipase | [facility] | measurement | | [facility] | | | | | (enzymatic | | [facility] | | | | | activity/vol | | | | | | | ume) | | | | | | + + + +------+ + + + + | Result panel 146 | + + + + + + + + + | Color of | 2025-04-11 | | YELLOW | (missing) | (missing) | | Urine by | 15:45 | [facility] | | | | | Auto | [facility] | | | [facility] | [facility] | [facility] | | | | + + + + + + + + + | Result panel 147 | + + + + + +---------+ + + | Character | 2025-04-11 | | CLEAR | (missing) | (missing) | | of Urine | 15:45 | [facility] | [facility] | [facility] | | [facility] | | | [facility] | [facility] | | | | + + + +---------+ + + + + | Result panel 148 | + + + + + + + + + | Glucose | 2025-04-11 | | NEGATIVE | (missing) | (missing) | | [Presence] | 15:45 | [facility] | | | | | in Urine by | [facility] | Test strip | | [facility] | | | | | | [facility] | | | | + + + + + + + + + | Result panel 149 | + + + + + + + + + | Urine total | 2025-04-11 | | NEGATIVE | (missing) | (missing) | | bilirubin | 15:45 | [facility] | | | | | detection by | [facility] | [facility] | test strip | | [facility] | | [facility] | | | [facility] | | | | + + + + + + + + + | Result panel 150 | + + + + + +---------+ + + | Urine | 2025-04-11 | | SMALL | (missing) | (missing) | | ketones | 15:45 | [facility] | | | | | detection by | [facility] | | [facility] | | test strip | | [facility] | | | | | | [facility] | | | | + + + +---------+ + + + + | Result panel 151 | + + + + + +---------+ + + | Specific | 2025-04-11 | | 1.020 | (missing) | (missing) | | gravity ur | 15:45 | [facility] | | | | | dipstick | [facility] | | | [facility] | | | | | | [facility] | | | | + + + +---------+ + + + + | Result panel 152 | + + + + + + + + + | Urine | 2025-04-11 | | MODERATE | (missing) | (missing) | | hemoglobin | 15:45 | [facility] | | | | | detection by | [facility] | | [facility] | | test strip | | [facility] | | | | | | [facility] | | | | + + + + + + + + + | Result panel 153 | + + + + + +-------+ + + | Urine pH | 2025-04-11 | | 7.0 | (missing) | (missing) | | measurement | 15:45 | [facility] | | | | | by test | [facility] | | [facility] | | strip | | [facility] | | | | | | [facility] | | | | + + + +-------+ + + + + | Result panel 154 | + + + + + + + + + | Protein | 2025-04-11 | | NEGATIVE | (missing) | (missing) | | urine test | 15:45 | [facility] | | | | | strip | [facility] | | | | | | [facility] | | | | | | | [facility] | | | | + + + + + + + + + | Result panel 155 | + + + + + +-------+ + + | | 2025-04-11 | | 1.0 | (missing) | (missing) | | Urobilinogen | 15:45 | [facility] | | | | | | | [facility] | | | | | [Mass/volume | | [facility] | | | | | ] in Urine | | Hospital | | | | | by Test | | | | | | | strip | | | | | | + + + +-------+ + + + + | Result panel 156 | + + + + + + + + + | Urine | 2025-04-11 | | NEGATIVE | (missing) | (missing) | | nitrite | 15:45 | [facility] | | | | | detection by | [facility] | | [facility] | | test strip | | [facility] | | | | | | | [facility] | | | | + + + + + + + + + | Result panel 157 | + + + + + + + + + | Urine | 2025-04-11 | | NEGATIVE | (missing) | (missing) | | leukocyte | 15:45 | [facility] | | | | | esterase | [facility] | [facility] | detection by | | [facility] | | | | | dipstick | | Hospital | | | | + + + + + + + + + | Result panel 158 | + + + + + +---------+ + + | Automated | 2025-04-11 | | 12-20 | (missing) | (missing) | | urine | 15:45 | [facility] | | | | | sediment | | - [facility] | | | | | erythrocyte | | [facility] | | | | | count by | | Hospital | | | | | microscopy | | | | | | | (number/high | | | | | | | power | | | | | | | field) | | | | | | + + + +---------+ + + + + | Result panel 159 | + + + + + +-------+ + + | Automated | 2025-04-11 | | 4-6 | (missing) | (missing) | | urine | 15:45 | [facility] | | | | | sediment | | - [facility] | | | | | leukocyte | | [facility] | | | | | count by | | Hospital | | | | | microscopy | | | | | | | (number/high | | | | | | | power | | | | | | | field) | | | | | | + + + +-------+ + + + + | Result panel 160 | + + + + + + + + + | Automated | 2025-04-11 | | SQUAMOUS 2+ | (missing) | (missing) | | urine | 15:45 | [facility] | | | | | sediment | | - [facility] | | | | | epithelial | | [facility] | | | | | cell count | | Hospital | | | | | by | | | | | | | microscopy | | | | | | | (number/high | | | | | | | power | | | | | | | field) | | | | | | + + + + + + + + + | Result panel 161 | + + + + + + + + + | Crystal | 2025-04-11 | | NONE SEEN | (missing) | (missing) | | typing in | 15:45 | [facility] | | | | | urine | | - [facility] | | [facility] | sediment by | | [facility] | | | | | light | | Hospital | | | | | microscopy | | | | | | + + + + + + + + + | Result panel 162 | + + + + + + + + + | Automated | 2025-04-11 | | NONE SEEN | (missing) | (missing) | | urine | 15:45 | [facility] | | | | | sediment | | - [facility] | | | | | bacteria | | [facility] | | | | | count by | | Hospital | | | | | microscopy | | | | | | | (number/high | | | | | | | power | | | | | | | field) | | | | | | + + + + + + + + + | Result panel 163 | + + + + + + + + + | Automated | 2025-04-11 | | NONE SEEN | (missing) | (missing) | | casts count | 15:45 | [facility] | | | | | in urine | | - [facility] | | | | | sediment by | | [facility] | | | | | microscopy | | Hospital | | | | | low power | | | | | | | field | | | | | | | (number/area | | | | | | | ) | | | | | | + + + + + + + + + | Result panel 164 | + + + + + +------+ + + | Reflexive | 2025-04-11 | | No | (missing) | (missing) | | urine | 15:45 | [facility] | | | | | bacterial | [facility] culture | | [facility] | | | | | | | [facility] | | | | + + + +------+ + + + + | Result panel 165 | + + + + + + + + + | Urinalysis | 2025-04-11 | | CLEAN CATCH | (missing) | (missing) | | specimen | 15:45 | [facility] | | | | | collection | [facility] | method | | [facility] | | | | | | [facility] | | | | + + + + + + + Social History + + + + | date | description | facility | + + + + | (no date) | Former smoker | [facility] | | | [facility] | + + + + Vital Signs + + + +---------+ | date | measurement | value | units | + + + +---------+ | 2025-04-07 00:00 | BMI | 23.7 | kg/m2 | + + + +---------+ | 2025-04-07 00:00 | height_metric | 182.88 | cm | + + + +---------+ | 2025-04-07 00:00 | height_standard | 72 | in | + + + +---------+ | 2025-04-07 00:00 | weight_metric | 79.299 | kg | + + + +---------+ | 2025-04-07 00:00 | weight_standard | 174.825 | lb | + + + +---------+ | 2025-04-09 00:00 | BMI | 5.7 | kg/m2 | + + + +---------+ | 2025-04-09 00:00 | height_metric | 365.76 | cm | + + + +---------+ | 2025-04-09 00:00 | height_standard | 144 | in | + + + +---------+ | 2025-04-09 00:00 | weight_metric | 76.501 | kg | + + + +---------+ | 2025-04-09 00:00 | weight_standard | 168.656 | lb | + + + +---------+ | 2025-04-10 00:00 | BP_diastolic | 96 | mmHg | + + + +---------+ | 2025-04-10 00:00 | BP_systolic | 160 | mmHg | + + + +---------+ | 2025-04-10 00:00 | heart_rate | 57 | /min | + + + +---------+ | 2025-04-10 00:00 | o2_saturation | 97 | % | + + + +---------+ | 2025-04-10 00:00 | respiration_rate | 18 | /min | + + + +---------+ | 2025-04-10 00:00 | | 98.6 | F | | | temperature_standar | | | | | d | | | + + + +---------+"
[2025-07-06] MEDS ORDERED: PERCOCET 5-3251 EACH PO (23:06)
[2025-07-06] MEDS ORDERED: ONDANSETRON ODT8 MG PO (23:06)
[2025-07-06] MEDS ORDERED: OXYCODONE/ACETAMINOPHEN 1 TAB HOME.PACK PO ONE (23:15)
[2025-07-06] MEDS ORDERED: ONDANSETRON 4 MG HOME.PACK SL ONE (23:15)
[2025-07-06 23:30] VITALS: BP 144/84
== END 2025-07-06 23:50 | disposition home or self-care (01) ==
LOC: ED 18:05
PROVIDERS: Emergency Medicine
DX: C67.9 Malignant neoplasm of bladder, unspecified (principal); R11.10 Vomiting, unspecified; R53.1 Weakness; K21.9 Gastro-esophageal reflux disease without esophagitis; Z87.891 Personal history of nicotine dependence; Z88.0 Allergy status to penicillin; Z88.8 Allergy status to other drugs, medicaments and biological substances; Z79.899 Other long term (current) drug therapy
CPT/HCPCS: 36415; 74177; 80053; 81001; 83690; 85025; 87088; 96374; 96375; 96376; 99285-25; A9270; J1171; J2405; J7030; Q9967